=== PATIENT | female | born 1985 | race Hispanic/Latino ===

== ENCOUNTER → 2019-01-22 07:55 | Outpatient (CLI) | payer BC, SELFPAY ==
--- NOTE | 2019-01-22 07:59 | DI.US.S_ITS ---
PROCEDURE: US OB <= 14 WEEKS FETUS INDICATIONS: DATES OUTSIDE/PRIOR DATING DATA: Last menstrual period (LMP): 11/15/18. LMP-based estimated date of delivery (YANET): 08/22/19. First dating scan (date and location): 01/22/19, this study.. Estimated date of delivery (YANET) from first dating scan: 08/31/19, plus or -5 days. TECHNIQUE: Real-time scanning was performed of the fetus and maternal pelvic organs, with image documentation. Endovaginal scanning was also performed to better visualize the fetus and maternal ovaries. COMPARISON: None. FINDINGS: Embryo: 1.9 cm, crown-rump length. This correlates with a gestational age of 8 weeks 3 days, plus or -5 days. heart rate is detected, 168 beats per minute. Measurement variability in dating: +/- 4 weeks by LMP, +/- 7 days by mean sac diameter (use before 6 weeks gestation if crown-rump length not able to be measured), +/- 5 days by crown-rump length (up to 8 weeks 6 days gestation), +/- 7 days by crown-rump length (up to 13 weeks 6 days gestation). Maternal organs: Ovaries normal considering gestational status on the right, not seen on the left. Limited images through the kidneys demonstrate no hydronephrosis. IMPRESSION: Single living intrauterine gestation 8 weeks 3 days, delivery date projected to be centered on 08/31/19. Followup anatomic survey at approximately 21 weeks gestation is recommended. Dictated by: Vik Ceja M.D. on 01/22/2019 at 9:45 Approved by: Vik Ceja M.D. on 01/22/2019 at 9:48
== END ==
PROVIDERS: PCP Nurse Practitioner Family; Visit Provider Family Medicine
DX: Z34.81 Encounter for supervision of other normal pregnancy, first trimester (principal); Z3A.08 8 weeks gestation of pregnancy
CPT/HCPCS: 76801; 76817

== ENCOUNTER → 2019-01-29 12:54 | Outpatient (CLI) | payer BC, SELFPAY | PROVIDERS: PCP Nurse Practitioner Family; Visit Provider Family Medicine ==

== ENCOUNTER → 2019-02-03 12:16 | Outpatient (CLI) | payer BC, SELFPAY ==
[2019-02-03 13:54] LABS: Appearance Urine UA CLEAR; Bilirubin Urine UA NEGATIVE (NEGATIVE); Color Urine UA YELLOW; Glucose Urine UA NEGATIVE (Negative); Ketones Urine UA NEGATIVE (NEGATIVE); Leukocyte Esterase Urine UA NEGATIVE (NEGATIVE); Nitrite Urine UA NEGATIVE (Negative); Occult Blood Urine UA NEGATIVE (Negative); Protein Urine UA NEGATIVE (Negative); Specific Gravity Urine UA 1.025 (1.000-1.035); Urobilinogen Urine UA 0.2 E.U./dL (0.2); pH Urine UA 5.5 (4.5-8.0)
[2019-02-03 14:00] LABS: Add Manual Diff / Slide Review NO; Basophils Absolute Auto 0 /uL (0-100); Basophils Percent Auto 0.2 % (0-2); Eosinophils Absolute Auto 100 /uL (0-450); Eosinophils Percent Auto 0.8 % (2-4); Hematocrit 37.2 % (36-46); Hemoglobin 12.8 g/dL (12.0-16.0); Lymphocytes Absolute Auto 1500 /uL (1100-4500); Lymphocytes Percent Auto 20.3 % (25-40); Mean Corpuscular HGB Conc 34.3 % (30-36); Mean Corpuscular Volume 90.3 fL (80-100); Monocytes Absolute Auto 300 /uL (0-900); Monocytes Percent Auto 4.2 % (3-14); Neutrophils Absolute Auto 5500 /uL (1500-7000); Neutrophils Percent Auto 74.5 % (50-75); Platelet Count 137 X10^3/uL (150-400); Red Blood Cell Count 4.13 X10^6/uL (4.0-5.2); Red Cell Distribution Width 13.1 % (11.6-14.8); White Blood Cell Count 7.3 X10^3/uL (4.5-11.0)
[2019-02-03 15:16] LABS: Hepatitis B Surface Antigen NEGATIVE s/c (NEGATIVE); Rubella Antibody IgG 6.4 IU/mL (>15)
[2019-02-03 15:34] LABS: HIV 1 & 2 Ab/Ag 4th Gen Combo NEGATIVE (NEGATIVE); Hep C Virus Ab w/Reflex Quant NEGATIVE s/c (NEGATIVE)
[2019-02-07 14:56] LABS: RPR Screen Nonreactive (Nonreactive)
[2019-02-08 07:34] LABS: HSV 2 IGG AB < 0.90 index (< 0.90)
== END ==
PROVIDERS: Family Medicine; PCP Nurse Practitioner Family; Visit Provider Family Medicine
DX: Z34.91 Encounter for supervision of normal pregnancy, unspecified, first trimester (principal); Z3A.09 9 weeks gestation of pregnancy
CPT/HCPCS: 36415; 80055; 81003; 86695; 86696; 86787; 86803; 86850; 86900; 86901; 87086; 87389

== ENCOUNTER → 2019-04-13 14:03 | Outpatient (CLI) | payer BC, SELFPAY ==
--- NOTE | 2019-04-13 14:05 | DI.US.S_ITS ---
PROCEDURE: US OB >= 14 WEEKS FETUS INDICATIONS: anatomy screening OUTSIDE/PRIOR DATING DATA: Last menstrual period (LMP): 11/15/18. LMP-based estimated date of delivery (YANET): 08/22/19. First dating scan (date and location): 01/22/90. Estimated date of delivery (YANET) from first dating scan: 08/31/19. TECHNIQUE: Real-time scanning was performed of the fetus, with image documentation and biometric measurements. Endovaginal scanning: Not performed COMPARISON: [facility], OB <= 14 WEEKS FETUS, 01/22/2019, 8:24. FINDINGS: General: A single living intrauterine gestation is present. Presentation: Variable. Placenta: Placental position is anterior, without previa. Amniotic fluid index: 13.2 cm, normal range is 5-24 cm. largest pocket measures 3.7 cm heart rate: 139 beats per minute. Maternal cervical canal: 4.5 cm long. Normal lower limit is 2.5 cm. biometrics: Biparietal diameter: 4.6 cm, 19 weeks 5 days Head circumference: 17.3 cm, 19 weeks 6 days Abdominal circumference: 15.0 cm, 20 weeks 2 days Femur length: 3.2 cm, 19 weeks 6 days Estimated gestational age from initial scan: 20 weeks zero days Composite gestational age from present scan: 19 weeks 6 days Estimated weight and percentile: 329 g, 48th percentile Measurement variability for biometric dating: +/- 7 days from 14 weeks to 15 weeks 6 days gestation, +/- 10 days from 16 weeks to 21 weeks 6 days gestation, +/- 2 weeks from 22 weeks to 27 weeks 6 days gestation, +/- 3 weeks for 28 weeks gestation or later. weight reference: 4500 g or EFW >90/95% is considered macrosomia or large for gestational age. EFW <10% is small for gestational age. EFW 5% or less is considered intra-uterine growth restriction. Anatomic survey: Neuro: Ventricles are non-dilated at less than 10 mm. Cisterna magna is normal at 3-11 mm. Cerebellum is normal in size and morphology. Nuchal skin fold: Normal at less than 6 mm between 14-21 weeks gestational age. Face: Nose and lips, facial profile are normal. Spine: No evidence for spina bifida. Heart: 4-chambered heart is present, with normal ventricular outflow tracts. Diaphragm: Diaphragm is intact. Stomach: Left-sided stomach is present. Kidneys: No hydronephrosis. Normal is less than 5 mm in 2nd trimester, less than 7 mm in 3rd trimester. Cord: 3-vessel cord has orthotopic insertion. Bladder: Normal in size. Extremities: All 4 extremities identified. IMPRESSION: Single living intrauterine fetus in variable presentation demonstrating expected interval growth. Normal anatomic survey as above Dictated by: Phill Krause M.D. on 04/13/2019 at 17:40 Approved by: Phill Krause M.D. on 04/13/2019 at 17:43
== END ==
PROVIDERS: PCP Nurse Practitioner Family; Visit Provider Family Medicine
DX: Z36.89 Encounter for other specified antenatal screening (principal); Z3A.19 19 weeks gestation of pregnancy
CPT/HCPCS: 76811

== ENCOUNTER → 2019-05-26 10:33 | Outpatient (CLI) | payer BC, SELFPAY ==
[2019-05-26 12:25] LABS: Hematocrit 34.9 % (36-46); Hemoglobin 12.3 g/dL (12.0-16.0)
[2019-05-26 12:32] LABS: GTT (PREG) 1 Hour PP 50gm Dose 207 mg/dL (76-139)
== END ==
PROVIDERS: PCP Nurse Practitioner Family; Visit Provider Family Medicine
DX: Z34.90 Encounter for supervision of normal pregnancy, unspecified, unspecified trimester (principal); Z3A.26 26 weeks gestation of pregnancy
CPT/HCPCS: 36415; 82950; 85014; 85018

== ENCOUNTER → 2019-06-08 07:58 | Outpatient (CLI) | payer BC, SELFPAY ==
[2019-06-08 09:46] LABS: Glucose Fasting 67 mg/dL (70-100)
[2019-06-08 10:15] LABS: Glucose 1 Hour 131 mg/dL (70-170)
[2019-06-08 11:35] LABS: Glucose Tol Interpretation INTERPRETATION
[2019-06-08 11:56] LABS: Glucose 2 Hour 77 mg/dL (70-140)
[2019-06-08 12:32] LABS: Glucose 3 Hour 53 mg/dL (70-115)
== END ==
PROVIDERS: PCP Family Medicine; Visit Provider Family Medicine
DX: E74.39 Other disorders of intestinal carbohydrate absorption (principal)
CPT/HCPCS: 36415; 82951; 82952

== ENCOUNTER → 2019-08-03 15:06 | Outpatient (CLI) | payer BC, SELFPAY ==
[2019-08-04 13:29] LABS: Strep Grp B PCR NEG for Grp B Strep
== END ==
PROVIDERS: PCP Family Medicine; Visit Provider Family Medicine
DX: Z3A.36 36 weeks gestation of pregnancy (principal)
CPT/HCPCS: 87653

== ENCOUNTER 2019-08-21 10:41 | Outpatient (CLI) | payer BC, SELFPAY ==
--- NOTE | 2019-08-21 10:42 | DI.US.S_ITS ---
PROCEDURE: US OB LIMITED INDICATIONS: SMALL FOR DATES. CHECK GROWTH AND RAFAL OUTSIDE/PRIOR DATING DATA: Last menstrual period (LMP): 11/15/18. LMP-based estimated date of delivery (YANET): 08/22/19. First dating scan (date and location): 01/22/19. Estimated date of delivery (YANET) from first dating scan: 08/31/19. TECHNIQUE: Real-time scanning was performed of the fetus, with image documentation and biometric measurements. Endovaginal scanning: Not needed. COMPARISON: None. FINDINGS: General: A single living intrauterine gestation is present. Presentation: Vertex. Placenta: Placental position is anterior, without previa. Amniotic fluid index: 13.5 cm, normal range is 5-24 cm. heart rate: 135 beats per minute. Maternal cervical canal: Not clearly seen. biometrics: Biparietal diameter: 8.4 cm, 34 weeks 0 days Head circumference: 31.4 cm, 35 weeks 2 days Abdominal circumference: 32.0 cm, 35 weeks 6 days Femur length: 6.8 cm, 36 weeks 2 days Estimated gestational age from initial scan: 38 weeks 4 days Composite gestational age from present scan: 35 weeks 0 days Estimated weight and percentile: 2654 g, at the threshold of microsomia. Measurement variability for biometric dating: +/- 7 days from 14 weeks to 15 weeks 6 days gestation, +/- 10 days from 16 weeks to 21 weeks 6 days gestation, +/- 2 weeks from 22 weeks to 27 weeks 6 days gestation, +/- 3 weeks for 28 weeks gestation or later. weight reference: 4500 g or EFW >90/95% is considered macrosomia or large for gestational age. EFW <10% is small for gestational age. EFW 5% or less is considered intra-uterine growth restriction. Other: Not applicable. IMPRESSION: Fetus is small for accurate gestational age dating, at the lower 5th percentile for the current estimated weight. Symmetric growth reduction, normal amniotic fluid index, vertex presentation. Dictated by: Vik Ceja M.D. on 08/21/2019 at 11:51 Approved by: Vik Ceja M.D. on 08/21/2019 at 11:54
--- NOTE | 2019-08-21 14:27 | DI.US.S_ITS ---
PROCEDURE: US OB BIOPHYSICAL PROFILE INDICATIONS: BPP, BABY MEASURING AT 50% OUTSIDE/PRIOR DATING DATA: Last menstrual period (LMP): 11/15/18. LMP-based estimated date of delivery (YANET): 08/22/19. First dating scan (date and location): 01/22/19. Estimated date of delivery (YANET) from first dating scan: 08/31/19. TECHNIQUE: Real-time scanning was performed of the fetus for biophysical profile, with image documentation. Color and pulse Doppler interrogation was also performed of the umbilical artery near its insertion into the placenta. Endovaginal scanning: No anemia COMPARISON: None. FINDINGS: General: A single living intrauterine gestation is present. Presentation: Vertex Placenta: Placental position is anterior, without previa. Amniotic fluid index: 16.0 cm, normal range is 5-24 cm. heart rate: 126 beats per minute. Estimated gestational age from initial scan: 38 weeks 4 days. Biophysical profile: 6 of 8 possible points. Tone: 2 points. Movement: 2 points. Respiration: 0 points. Largest pocket of fluid: 2 points. IMPRESSION: Biophysical profile yields 6 at 8 possible points with no respiratory activity observed in the amniotic fluid. The amniotic fluid volume is normal, and the delivery date is projected to be centered on 08/31/19. Dictated by: Vik Ceja M.D. on 08/21/2019 at 16:37 Approved by: Vik Ceja M.D. on 08/21/2019 at 16:39
--- NOTE | 2019-08-21 17:27 | PM.OBTRLD ---
Visit Information Visit Information Date of evaluation: 08/21/19 Primary OB Provider: Katie Moraes Reason for Evaluation: Yes non-stress test non-stress test reason: other (SGA) Vital Signs Vital Signs: BP 108/70 P 90 PFSH Social History marital status: number of children: 0 household members: spouse lives independently: Yes occupational status: employed Smoking Status: Never smoker alcohol intake: never substance use type: does not use Evaluation Evaluation Baseline heart rate: 125 Variability: Moderate (11-25) monitor accelerations: Present monitor decelerations: Absent Uterine Contraction Intensity: Mild Category of Tracing: I Diagnosis, Plan/Disposition Final Diagnosis (1) Small for gestational age fetus: Current Visit: No Status: Acute (2) 38 weeks gestation of : Current Visit: No Status: Acute Plan/Disposition Plan: 33 year old at 38+4 weeks. She had an US today for growth due to measuring small for dates. EFW 5% with symmetric growth. BPP 8/10 today, off for respirations. NST reactive and RAFAL normal. Will have patient return on 08/23/19 for Cervidil followed by pitocin induction 08/24/19. OB Disposition: home
== END 2019-08-21 16:02 | disposition home or self-care (01) ==
LOC: US 10:42 → LABOR 14:43
PROVIDERS: PCP Family Medicine; Referring Provider Family Medicine; Visit Provider Family Medicine
DX: O36.5930 Maternal care for other known or suspected poor fetal growth, third trimester, not applicable or unspecified (principal); Z3A.35 35 weeks gestation of pregnancy
CPT/HCPCS: 59025; 76815; 76819; G0378

== ENCOUNTER 2019-08-23 20:38 | Inpatient (IN) | payer BC, SELFPAY ==
--- NOTE | 2019-08-23 21:56 | P.HPOB_ITS ---
OB HPI Date/Time Date of admission: 08/23/19 Date Patient Seen: 08/23/19 Time Patient Seen: 21:56 History of Present Condition Chief complaint: observation of labor : 1 Para: 0 Estimated Date of Delivery: 08/31/19 Estimated Gestational Age (weeks): 38w6d Narrative: Shira Barrientos is a 33 year old at 38 weeks and 6 days gestation here for induction due to suspected small for gestational age . She was m easuring less than dates so growth ultrasound was done earlier this week showing EFW at the fifth percentile. Growth restriction is symmetric and measures at 35 weeks rather 38 weeks. has otherwise been uncomplicated. She failed her 1 hour GTT but passed her 3 hour GTT easily. R emainder of the she watched her diet closely. She has a history of gastric sleeve surgery December 2017 with resultant 80 lb weight loss. 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 She has never had an outbreak herself. Indications Indication for induction OB: other (Suspected SGA) History of Present care: good care, initiated at week # (9), number of visits (12) and pounds weight gain (21) Dating criteria: based on 1st trimester US only Ultrasounds: normal mid trimester US and abnormal US findings (EFW 5th percentile at 38 weeks and 4 days otherwise normal anatomy) Obstetrical complications: none Medical complications: none Preadmission Labs Blood type: B (+) positive -: Antibody screen: negative, GBS status: negative, HBsAG: negative, HIV: ne gative, HSV 1: positive, HSV 2: negative and RPR/VDLR: negative -: Rubella: not immune and Varicella: immune HCT: 37.2 HCAB: negative Urine: Negative 1 hr GTT: 207 3 hr GTT: 1 hr (131), 2 hr (77) and 3 hr (53) Fasting blood glucose: 67 Evaluation Evaluation Baseline heart rate: 120 Variability: Moderate (11-25) monitor accelerations: Present monitor decelerations: Absent Category of Tracing: I PFSH Medical History Infertility (Resolved) PCOS (polycystic ovarian syndrome) (Resolved) Surgical History S/P appendectomy (Resolved) S/P bariatric surgery (Resolved) Family History Father Diabetes mellitus Social History marital status: number of children: 0 household members: spouse lives independently: Yes occupational status: employed Smoking Status: Never smoker alcohol intake: never substance use type: does not use Meds Home Medications and Allergies Home Medications Medication Instructions Recorded Confirmed Type prenat.vits,esequiel,mkk-kozs-rwoog 1 tab PO DAILY 01/22/19 08/10/19 History silver sulfadiazine 1 % topical 1 applictn TOP DAILY #20 gram 01/29/19 08/10/19 Rx cream acyclovir 400 mg tablet 400 mg PO TID #90 tab 08/10/19 08/10/19 Rx Allergies Allergy/AdvReac Type Severity Reaction Status Date / Time No Known Drug Allergies Allergy Verified 08/10/19 15:12 Review of Systems Constitutional Constitutional: Denies fatigue and Denies fever(s) Cardiovascular Cardiovascular: Denies leg swelling and Denies shortness of breath Respiratory Respiratory: Denies cough and Denies dyspnea Gastrointestinal Gastrointestinal: Denies abdominal pain and Denies change in bowel habits Genitourinary Genitourinary: Denies vaginal discharge, Denies vaginal odor and Denies pelvic pain Endocrine Endocrine: Denies fatigue Exam Vital Signs (past 8 hours): T 36.4 BP 104/68 HR 61 Const General: healthy appearing and comfortable HENMT Head: normal to inspection Ears: hearing grossly normal bilaterally Nose: external nose normal Face and sinus: normal facial exam Mouth: oral mucosae normal Eyes General: appearance normal, both eyes and all related structures Neck Neck: normal visual inspection Resp Effort & Inspection: normal respiratory effort Auscultation: clear to auscultation bilaterally Cardio Rate: regular rate Rhythm: regular rhythm Heart Sounds: no murmurs GI Other: Gravid Estimated Weight (lbs): 6 Back/Spine/Pelvis Back: normal to inspection Skin General: no rashes or lesions noted Extrem General: normal to inspection and no pedal edema Objective Labs Result Diagrams: 08/23/19 23:15 Assessment and Plan Assessment and Plan Assessment and Plan narrative: 33 year old at 38+6 weeks gestation here for induction due to SGA. EFW at the 5th% by US at 38+4 weeks. Plan - Cervical ripening followed by pitocin - GBS negative
[2019-08-24] MEDS: DINOPROSTONE VAG (CERVIDIL) 10 MG VAG
[2019-08-24 00:12] VITALS: BP 94/63
[2019-08-24 00:33] LABS: Add Manual Diff / Slide Review NO; Basophils Absolute Auto 0 /uL (0-100); Basophils Percent Auto 0.2 % (0-2); Eosinophils Absolute Auto 100 /uL (0-450); Eosinophils Percent Auto 1.6 % (2-4); Hemoglobin 11.5 g/dL (12.0-16.0); Lymphocytes Absolute Auto 1700 /uL (1100-4500); Lymphocytes Percent Auto 30.4 % (25-40); Mean Corpuscular HGB Conc 34.8 % (30-36); Monocytes Absolute Auto 300 /uL (0-900); Monocytes Percent Auto 5.8 % (3-14); Neutrophils Absolute Auto 3400 /uL (1500-7000); Red Blood Cell Count 3.71 X10^6/uL (4.0-5.2); Red Cell Distribution Width 12.9 % (11.6-14.8); White Blood Cell Count 5.5 X10^3/uL (4.5-11.0)
[2019-08-24 00:36] LABS: Platelet Count 92 X10^3/uL (150-400)
[2019-08-24] MEDS: LACTATED RINGERS 1,000 ML 100 ML IV ×3 (07:48→21:08)
--- NOTE | 2019-08-24 08:22 | PM.OBPNLAB ---
Date/Time Date Patient Seen: 08/24/19 Time Patient Seen: 07:45 Pain Control Pain control: tolerating well (Feeling crampy) Pelvic Exam Dilation (cm): 1 Effacement (%): 60 station: -1 Contractions Contraction frequency (min): 4 Contraction pattern: Regular Contraction intensity: Mild Status status: Category l Heart Rate Baseline: 125 Monitor Accelerations: Present Monitor Decelerations: Absent Monitor Variability: Moderate Assessment and Plan Comments: Remove Cervidil at 10 AM and start pitocin.
[2019-08-24] MEDS: OXYTOCIN PREMIX 30 UNIT/500 ML PLAST..BAG IV (10:29)
--- NOTE | 2019-08-24 12:48 | PM.OBPNLAB ---
Date/Time Date Patient Seen: 08/24/19 Time Patient Seen: 12:10 Pain Control Pain control: tolerating well Pelvic Exam Dilation (cm): 3 Effacement (%): 75 station: -1 Contractions Pitocin rate (mU/min): 6 Contraction pattern: Regular Contraction intensity: Mild Status status: Category l Heart Rate Baseline: 130 Monitor Accelerations: Present Monitor Decelerations: Absent Monitor Variability: Moderate Assessment and Plan Assessment: induction ongoing Plan: continuous present management
--- NOTE | 2019-08-24 22:39 | P.PCNOB_ITS ---
Labor & Delivery Delivery date: 08/24/19 Cervical ripening method: per Cervidil protocol Induction method: per pitocin protocol Delivery augmentation: rupture of membranes Delivery monitor: external FHT Route of delivery: L&D Laceration Description: Vaginal - 2nd Degree Delivery repair: vicryl Estimated blood loss (mL): 400 Anesthesia type: Epidural Narrative: STAGE I: Labor Patient received Cervidil overnight followed by Pitocin per protocol. Active labor began at 12:05 p.m.. Patient received an epidural. Artificial rupture of membranes at 3:54 p.m. with clear fluid. She was complete at 9:33 p.m.. heart tones were category 1 throughout stage I. STAGE II: Delivery Spontaneous vaginal delivery occurred at 10:11 p.m.. Infant was vertex and OMERO. was immediately placed on mother's abdomen and vigorous at delivery. Cord was clamped and cut after 1 minutes delay. Apgars were 9 and 9. STAGE III: Placenta/Cord Placenta delivered at 10:16 p.m. after active management and appeared intact with a three-vessel cord. Pitocin bolus given after delivery of placenta. A short second-degree vaginal laceration was repaired in the usual fashion with 3- 0 Vicryl. Hemostasis assured. Fundus firm below umbilicus. EBL: 400 mL. Needle and sponge counts were correct. The vagina was inspected and no items were left in situ. Patient was doing well with Alicia, her and at bedside. Baby 1: gender: Female Presentation: vertex Placenta delivery description: Spontaneous cord vessel description: 3 Vessels score (1 min): 9 score (5 min): 9
--- NOTE | 2019-08-25 11:15 | P.PNOB_ITS ---
Subjective - OB Subjective Patient comments: no complaints, tolerating diet and flatus present [place] baby status: doing well feeding status: exclusively breast feeding Date Patient Seen: 08/25/19 Time Patient Seen: 10:15 Interval history: Patient denies complaints this morning and is doing quite well. has breast-fed several times since delivery. Bleeding is similar to a menstrual cycle and decreasing. Pain is well controlled without any medication. She is ambulating and voiding without difficulty. She was lightheaded after delivery with some lower than normal blood pressures however symptoms resolved this morning. Exam Vital Signs (past 8 hours): Temperature 36.8? blood pressure 89/50 heart rate 76 Narrative Exam Narrative: General: Awake and alert, no acute distress. HEENT: NCAT, EOMI, moist oral mucosa CV: Regular rate and rhythm, no murmurs, rubs or gallops Lungs: CTAB, no wheezes, rales, or rhonchi Abdomen: Soft, nontender; bowel tones active; uterus firm 1 cm below umbilicus Extremities: Warm, no edema, 2+ pedal pulses bilaterally Objective Labs Result Diagrams: 08/23/19 23:15 Assessment & Plan Assessment and Plan (1) 39 weeks gestation of : Status: Acute Current Visit: Yes (2) Spontaneous vaginal delivery: Status: Acute Current Visit: Yes Plan day: 1 plan OB: routine care Comments: Doing well without complaints. She had mild thrombocytopenia on admission without associated hypertension that would raise concern for preeclampsia. No issues with excessive bleeding . Will repeat a level today. Anticipate discharge home tomorrow. Time Spent With Patient Time: Total time spent is greater than 50% in coordination of care (as documented) at patient's floor/unit and/or counseling patient: Time with patient: less than 15 minutes
[2019-08-25 14:37] LABS: Add Manual Diff / Slide Review NO; Basophils Absolute Auto 0 /uL (0-100); Basophils Percent Auto 0.2 % (0-2); Eosinophils Absolute Auto 100 /uL (0-450); Eosinophils Percent Auto 0.8 % (2-4); Hematocrit 32.9 % (36-46); Hemoglobin 11.8 g/dL (12.0-16.0); Lymphocytes Absolute Auto 1400 /uL (1100-4500); Lymphocytes Percent Auto 14.1 % (25-40); Mean Corpuscular HGB Conc 35.8 % (30-36); Mean Corpuscular Hemoglobin 31.9 PG (26-34); Mean Corpuscular Volume 89.3 fL (80-100); Monocytes Absolute Auto 400 /uL (0-900); Monocytes Percent Auto 3.7 % (3-14); Neutrophils Absolute Auto 8200 /uL (1500-7000); Neutrophils Percent Auto 81.2 % (50-75); Platelet Count 103 X10^3/uL (150-400); Red Blood Cell Count 3.68 X10^6/uL (4.0-5.2); Red Cell Distribution Width 13.3 % (11.6-14.8); White Blood Cell Count 10.1 X10^3/uL (4.5-11.0)
--- NOTE | 2019-08-26 08:40 | P.PNOB_ITS ---
Subjective - OB Subjective Patient comments: no complaints and pain well controlled [place] baby status: doing well [place] feeding status: exclusively breast feeding Narrative: This patient is a 33-year-old para 1 day 2 after an u ncomplicated vaginal delivery. Patient was induced for suspected IUGR, baby doing well, weighed over 6 lb. Patient reports feeling well, ambulating, tolerating p.o., voiding, mild lochia, no other complaints. Date Patient Seen: 08/26/19 Time Patient Seen: 08:40 Exam Vital Signs (past 8 hours): 100/56, heart rate 66 Narrative Exam Narrative: On room, patient tearful, reports ?happy tears, I'm overjoyed.? Denies symptoms of depression or baby blues. Const General: cooperative, healthy appearing and comfortable Resp Effort & Inspection: normal respiratory effort Auscultation: clear to auscultation bilaterally Cardio Rate: regular rate Rhythm: regular rhythm GI Palpation: soft and No tender Other: Fundus firm, well below U External Female Exam: external appearance normal and exteral laceration (Sutures intact, no signs or symptoms of infection.) Skin General: no rashes or lesions noted Objective Labs Result Diagrams: 08/25/19 14:20 Labs: Laboratory Results - last 24 hr 08/25/19 14:20 WBC 10.1 D RBC 3.68 L Hgb 11.8 L Hct 32.9 L MCV 89.3 MCH 31.9 MCHC 35.8 RDW 13.3 Plt Count 103 L Neut % (Auto) 81.2 H Lymph % (Auto) 14.1 L Esmeralda % (Auto) 3.7 Eos % (Auto) 0.8 L Baso % (Auto) 0.2 Neut # (Auto) 8200 H Lymph # (Auto) 1400 Esmeralda # (Auto) 400 Eos # (Auto) 100 Baso # (Auto) 0 Assessment & Plan Assessment and Plan (1) 39 weeks gestation of : Status: Acute Current Visit: Yes (2) Spontaneous vaginal delivery: Status: Acute Current Visit: Yes Plan day: 2 plan OB: discharge home Comments: This patient is doing well, meeting goals appropriately in stable for discharge home. precautions and anticipatory guidance were discussed, all questions were answered and patient and spouse vocalized understanding. Time Spent With Patient Time: Total time spent is greater than 50% in coordination of care (as documented) at patient's floor/unit and/or counseling patient: Time with patient: 25 - 35 minutes
--- NOTE | 2019-08-26 08:42 | PM.OBDS.1 ---
Discharge Providers Provider Date of admission: 08/23/19 20:38 Discharge Date: 08/26/19 Primary care physician: Katie Moraes DO Consults: 08/25/19 22:55 Consult to Telecommunications Clerk Routine Comment: Discharge provider: Michela Hamm MD Summary Hospital Course Date Patient Seen: 08/26/19 Time Patient Seen: 08:43 Procedures: Spontaneous vaginal delivery Hospital Course: This patient is a 33-year-old now para 1 presented for induction of labor for suspected IUGR. Patient underwent uncomplicated induction of labor and vaginal delivery, with no intrapartum or immediate complications. Recovery was uneventful, and patient was discharged on day 2. Peripartum Data Infant Delivery Method: Natural Vaginal Laceration description: Perineal - 2nd Degree complications: none 1: Gender: Female Disposition of : home Discharge Diagnosis (1) 39 weeks gestation of : Status: Acute (2) Spontaneous vaginal delivery: Status: Acute Status at Discharge Cognitive/behavioral status at discharge: oriented Functional status at discharge: independent ambulation Overall status at discharge: patient is progressing back to baseline Time Spent with Patient Time attestation: Total time spent providing and/or coordinating discharge services: Time spent: Less than 30 minutes Objective Labs Result Diagrams: 08/25/19 14:20 Labs: Laboratory Results - last 24 hr 08/25/19 14:20 WBC 10.1 D RBC 3.68 L Hgb 11.8 L Hct 32.9 L MCV 89.3 MCH 31.9 MCHC 35.8 RDW 13.3 Plt Count 103 L Neut % (Auto) 81.2 H Lymph % (Auto) 14.1 L Stokes % (Auto) 3.7 Eos % (Auto) 0.8 L Baso % (Auto) 0.2 Neut # (Auto) 8200 H Lymph # (Auto) 1400 Stokes # (Auto) 400 Eos # (Auto) 100 Baso # (Auto) 0 Exam Vital Signs (past 8 hours): CC day of discharge progress note Discharge Plan Discharge Plan Patient Disposition: Home Discharge orders & Medications Prescriptions: Continued acyclovir 400 mg tablet 400 mg PO TID Qty: 90 RF: 0 prenat.vits,esequiel,por-ixin-tntka tablet 1 tab PO DAILY RF: 0 Discontinued silver sulfadiazine 1 % cream 1 applictn TOP DAILY Qty: 20 RF: 0 Follow up/Referrals: Katie Moraes DO [Primary Care Provider] - 6 Weeks Diet/Activity/Treatments Diet: Regular Activity: Nothing in the vagina for 6 weeks. Avoid heavy lifting for 6 weeks. If you have increasing bleeding, fevers, chills, nausea, headaches that do not go away, worsening depression symptoms, or any other concerns, call or come to the emergency room. Skin/Wound/Dressing Care Report to your healthcare provider any signs of infection, such as:: chills, fever, night sweats, increased pain, unusual drainage and unusual redness Visit Report/Discharge Packet Instructions: DI for Labor and Delivery, Vaginal Discharge Data Primary Care Provider: Katie Moraes
[2019-08-26 10:29] VITALS: BP 109/77; PULSE 71; RESP 16; TEMP 36.7
== END 2019-08-26 14:03 | disposition home or self-care (01) | DRG 806 ==
PROVIDERS: Admitting Provider Family Medicine; PCP Family Medicine; Referring Provider Family Medicine; Visit Provider Family Medicine
DX: O36.5930 Maternal care for other known or suspected poor fetal growth, third trimester, not applicable or unspecified (principal); O71.4 Obstetric high vaginal laceration alone; Z37.0 Single live birth; O99.12 Other diseases of the blood and blood-forming organs and certain disorders involving the immune mechanism complicating childbirth; Z3A.38 38 weeks gestation of pregnancy; D69.6 Thrombocytopenia, unspecified
CPT/HCPCS: 01967; 36415; 59050; 59400; 85025; 86850; 86900; 86901; G0379; J2590

== ENCOUNTER → 2020-08-02 09:23 | Outpatient (CLI) | payer BC, SELFPAY ==
[2020-08-02 11:08] LABS: HCG Quantitative /Beta subunit 140190 mIU/mL
== END ==
PROVIDERS: PCP Family Medicine; Referring Provider Family Medicine; Visit Provider Family Medicine
DX: Z34.81 Encounter for supervision of other normal pregnancy, first trimester (principal)
CPT/HCPCS: 36415; 84702

== ENCOUNTER → 2020-08-04 09:02 | Outpatient (CLI) | payer BC, OTHER, SELFPAY ==
[2020-08-04 10:45] LABS: HCG Quantitative /Beta subunit 146210 mIU/mL
== END ==
PROVIDERS: PCP Family Medicine; Referring Provider Family Medicine; Visit Provider Family Medicine
DX: Z34.81 Encounter for supervision of other normal pregnancy, first trimester (principal)
CPT/HCPCS: 36415; 84702

== ENCOUNTER → 2020-08-07 07:50 | Outpatient (CLI) | payer BC, OTHER, SELFPAY ==
--- NOTE | 2020-08-07 07:51 | DI.US.S_ITS ---
PROCEDURE: US OB <= 14 WEEKS FETUS INDICATIONS: DATING AND VIABILITY OUTSIDE/PRIOR DATING DATA: Last menstrual period (LMP): Unknown. LMP-based estimated date of delivery (YANET): Unknown. First dating scan (date and location): 08/07/2020. Estimated date of delivery (YANET) from first dating scan: 03/13/2021. TECHNIQUE: Real-time scanning was performed of the fetus and maternal pelvic organs, with image documentation. COMPARISON: None. FINDINGS: Embryo: Living intrauterine gestation. [place] lump length measuring 2.2 cm, 8 weeks 6 days gestational age. heart rate 178 BPM. A yolk sac is seen. No perigestational hemorrhage. Measurement variability in dating: +/- 4 weeks by LMP, +/- 7 days by mean sac diameter (use before 6 weeks gestation if crown-rump length not able to be measured), +/- 5 days by crown-rump length (up to 8 weeks 6 days gestation), +/- 7 days by crown-rump length (up to 13 weeks 6 days gestation). Maternal organs: Right corpus luteum suspected measuring 1.8 cm. The left ovary is not well seen. IMPRESSION: 1. Kay living intrauterine at 8 weeks 6 days based on today's crown rump length. 2. No perigestational hemorrhage. Dictated by: Declan Massey M.D. on 08/07/2020 at 9:27 Approved by: Declan Massey M.D. on 08/07/2020 at 9:30
== END ==
PROVIDERS: Referring Provider Family Medicine; Visit Provider Family Medicine
DX: Z34.81 Encounter for supervision of other normal pregnancy, first trimester (principal); Z3A.08 8 weeks gestation of pregnancy
CPT/HCPCS: 76801; 76817

== ENCOUNTER → 2020-08-16 11:40 | Outpatient (CLI) | payer BC, OTHER, MEDICAID, SELFPAY ==
[2020-08-16 12:36] LABS: Add Manual Diff / Slide Review NO; Appearance Urine UA CLEAR; Basophils Absolute Auto 0 /uL (0-100); Basophils Percent Auto 0.4 % (0-2); Bilirubin Urine UA NEGATIVE (NEGATIVE); Color Urine UA YELLOW; Eosinophils Absolute Auto 0 /uL (0-450); Eosinophils Percent Auto 0.8 % (2-4); Glucose Urine UA NEGATIVE (Negative); Hematocrit 40.3 % (36-46); Hemoglobin 13.6 g/dL (12.0-16.0); Ketones Urine UA NEGATIVE (NEGATIVE); Leukocyte Esterase Urine UA NEGATIVE (NEGATIVE); Lymphocytes Absolute Auto 1200 /uL (1100-4500); Lymphocytes Percent Auto 18.9 % (25-40); Mean Corpuscular HGB Conc 33.8 % (30-36); Mean Corpuscular Volume 88.7 fL (80-100); Monocytes Absolute Auto 400 /uL (0-900); Monocytes Percent Auto 5.9 % (3-14); Neutrophils Absolute Auto 4700 /uL (1500-7000); Nitrite Urine UA NEGATIVE (Negative); Occult Blood Urine UA NEGATIVE (Negative); Platelet Count 137 X10^3/uL (150-400); Protein Urine UA NEGATIVE (Negative); Red Blood Cell Count 4.54 X10^6/uL (4.0-5.2); Red Cell Distribution Width 13.7 % (11.6-14.8); Urobilinogen Urine UA 0.2 E.U./dL (0.2); White Blood Cell Count 6.4 X10^3/uL (4.5-11.0)
[2020-08-18 14:43] LABS: Varicella IgG Antibody 1773 index (Immune >165)
[2020-08-18 16:11] LABS: HIV 1 & 2 Ab/Ag 4th Gen Combo NEGATIVE (NEGATIVE); Hep C Virus Ab w/Reflex Quant NEGATIVE s/c (NEGATIVE); Hepatitis B Surface Antigen NEGATIVE s/c (NEGATIVE); Rubella Antibody IgG 5.2 IU/mL (>15)
[2020-08-19 08:13] LABS: RPR Screen Non Reactive (Non Reactive)
== END ==
PROVIDERS: Referring Provider Family Medicine; Visit Provider Family Medicine
DX: Z34.81 Encounter for supervision of other normal pregnancy, first trimester (principal)
CPT/HCPCS: 36415; 80055; 81003; 86787; 86803; 86850; 86900; 86901; 87086; 87389

== ENCOUNTER → 2020-08-28 10:44 | Outpatient (CLI) | payer BC, OTHER, MEDICAID, SELFPAY ==
[2020-08-28 11:17] LABS: Hemoglobin A1C% w Est Avg Glu 4.9 % (4.0-6.0)
[2020-08-30 04:11] LABS: Chlamydia trachomatis NAA Negative (Negative); Neisseria gonorrhoeae NAA Negative (Negative)
== END ==
PROVIDERS: PCP Family Medicine; Referring Provider Family Medicine; Visit Provider Family Medicine
DX: R73.9 Hyperglycemia, unspecified (principal)
CPT/HCPCS: 36415; 83036; 87491; 87591

== ENCOUNTER → 2020-10-22 14:11 | Outpatient (CLI) | payer BC, OTHER, MEDICAID, SELFPAY ==
--- NOTE | 2020-10-22 14:12 | DI.US.S_ITS ---
PROCEDURE: US OB >= 14 WEEKS FETUS INDICATIONS: anatomy screening OUTSIDE/PRIOR DATING DATA: Last menstrual period (LMP): Not available. LMP-based estimated date of delivery (YANET): Not available . First dating scan (date and location): 08/07/20 . Estimated date of delivery (YANET) from first dating scan: 03/13/21 . TECHNIQUE: Real-time scanning was performed of the fetus, with image documentation and biometric measurements. Endovaginal scanning: Not necessary COMPARISON: [facility], OB >= 14 WEEKS FETUS, 04/13/2019, 14:44. FINDINGS: General: A single living intrauterine gestation is present. Presentation: Vertex. Placenta: Placental position is anterior , without previa. Amniotic fluid index: 15.0cm, normal range is 5-24 cm. heart rate: 131 beats per minute. Maternal cervical canal: 5.2 cm long. Normal lower limit is 2.5 cm. biometrics: Biparietal diameter: 4.3 cm, 19 weeks 1 day Head circumference: 16.7 cm, 19 weeks 2 days Abdominal circumference: 14.0 cm, 19 weeks 2 days Femur length: 3.0 cm, 19 weeks 1 day Estimated gestational age from initial scan: 19 weeks 5 days Composite gestational age from present scan: 19 weeks 2 days Estimated weight and percentile: 282 g, 20 second percentile Measurement variability for biometric dating: +/- 7 days from 14 weeks to 15 weeks 6 days gestation, +/- 10 days from 16 weeks to 21 weeks 6 days gestation, +/- 2 weeks from 22 weeks to 27 weeks 6 days gestation, +/- 3 weeks for 28 weeks gestation or later. weight reference: 4500 g or EFW >90/95% is considered macrosomia or large for gestational age. EFW <10% is small for gestational age. EFW 5% or less is considered intra-uterine growth restriction. Anatomic survey: Neuro: Ventricles are non-dilated at less than 10 mm. Cisterna magna is normal at 3-11 mm. Cerebellum is normal in size and morphology. Nuchal skin fold: Normal at less than 6 mm between 14-21 weeks gestational age. Face: Nose and lips, facial profile are poorly seen. Spine: No evidence for spina bifida. Heart: 4-chambered heart is poorly seen, with poorly seen ventricular outflow tracts. Diaphragm: Diaphragm is intact. Stomach: Left-sided stomach is present. Kidneys: No hydronephrosis. Normal is less than 5 mm in 2nd trimester, less than 7 mm in 3rd trimester. Cord: 3-vessel cord has orthotopic insertion. Bladder: Normal in size. Extremities: All 4 extremities identified. IMPRESSION: Appropriate interval growth, no anomaly seen however the facial area, four-chamber view of heart and cardiac outflow tracts were not well seen due to positioning. Follow-up in approximately 10 days is recommended to attempt completion of the anatomic survey. Dictated by: Vik Ceja M.D. on 10/22/2020 at 16:04 Approved by: Vik Ceja M.D. on 10/22/2020 at 16:06
== END ==
PROVIDERS: PCP Family Medicine; Referring Provider Family Medicine; Visit Provider Family Medicine
DX: Z36.89 Encounter for other specified antenatal screening (principal); Z3A.19 19 weeks gestation of pregnancy
CPT/HCPCS: 76811

== ENCOUNTER → 2020-11-03 08:04 | Outpatient (CLI) | payer BC, OTHER, MEDICAID, SELFPAY ==
--- NOTE | 2020-11-03 08:05 | DI.US.S_ITS ---
PROCEDURE: US OB FOLLOW UP INDICATIONS: FOLLOW UP HEART AND FACE OUTSIDE/PRIOR DATING DATA: Last menstrual period (LMP): Unknown LMP-based estimated date of delivery (YANET): Unknown . First dating scan (date and location): 08/07/20 . Estimated date of delivery (YANET) from first dating scan: 03/13/21 . TECHNIQUE: Real-time scanning was performed of the fetus, with image documentation. Endovaginal scanning: Not performed COMPARISON: [facility], OB >= 14 WEEKS FETUS, 10/22/2020, 13:25. [facility], OB <= 14 WEEKS FETUS, 08/07/2020, 8:04. FINDINGS: A single living intrauterine gestation is present. Presentation: Vertex. Placenta: Placental position is anterior/fundal , without previa. Amniotic fluid index: 16.5 cm, normal range is 5-24 cm. heart rate: 150 beats per minute. Maternal cervical canal: 4.9 cm long. Normal lower limit is 2.5 cm. Estimated gestational age from initial scan: 21 weeks 3 days Normal appearance of the facial profile, orbits, nose lips and face. There is normal appearance of the ventricular outflow tracts and four-chamber heart. This completes the anatomic survey . IMPRESSION: Single living intrauterine fetus in vertex presentation. Normal follow-up anatomic survey as above. Dictated by: Phill Krause M.D. on 11/03/2020 at 12:59 Approved by: Phill Krause M.D. on 11/03/2020 at 13:03
== END ==
PROVIDERS: PCP Family Medicine; Referring Provider Family Medicine; Visit Provider Family Medicine
DX: Z36.2 Encounter for other antenatal screening follow-up (principal); Z3A.21 21 weeks gestation of pregnancy
CPT/HCPCS: 76816

== ENCOUNTER → 2021-01-12 08:24 | Outpatient (CLI) | payer BC, OTHER, MEDICAID, SELFPAY ==
[2021-01-12 11:51] LABS: Hematocrit 36.2 % (36-46); Hemoglobin 12.1 g/dL (12.0-16.0)
[2021-01-12 12:28] LABS: GTT (PREG) 1 Hour PP 50gm Dose 141 mg/dL (76-139)
== END ==
PROVIDERS: PCP Family Medicine; Referring Provider Family Medicine; Visit Provider Family Medicine
DX: Z34.92 Encounter for supervision of normal pregnancy, unspecified, second trimester (principal); Z3A.26 26 weeks gestation of pregnancy
CPT/HCPCS: 36415; 82950; 85014; 85018

== ENCOUNTER → 2021-01-27 08:01 | Outpatient (CLI) | payer BC, OTHER, MEDICAID, SELFPAY ==
[2021-01-27 09:38] LABS: Glucose Fasting Gestational 65 mg/dL (76-95)
[2021-01-27 10:18] LABS: Glucose 1 Hour Gest 181 mg/dL (76-180)
[2021-01-27 11:13] LABS: Glucose 2 Hour Gest 95 mg/dL (76-155)
[2021-01-27 11:26] LABS: Glucose Tol Interp,Gestational INTERPRETATION
[2021-01-27 12:23] LABS: Glucose 3 Hour Gest 56 mg/dL (76-140)
== END ==
PROVIDERS: PCP Family Medicine; Referring Provider Family Medicine; Visit Provider Family Medicine
DX: R73.09 Other abnormal glucose (principal)
CPT/HCPCS: 36415; 82951; 82952

== ENCOUNTER → 2021-02-16 12:10 | Outpatient (CLI) | payer BC, OTHER, MEDICAID, SELFPAY ==
[2021-02-17 11:11] LABS: Strep Grp B PCR NEG for Grp B Strep
== END ==
PROVIDERS: PCP Family Medicine; Visit Provider Family Medicine
DX: Z34.90 Encounter for supervision of normal pregnancy, unspecified, unspecified trimester (principal); Z3A.36 36 weeks gestation of pregnancy
CPT/HCPCS: 87653

== ENCOUNTER 2021-03-05 19:07 | Inpatient (IN) | payer BC, OTHER, MEDICAID, SELFPAY ==
[2021-03-05 20:10] VITALS: BP 109/71
[2021-03-05] MEDS: DINOPROSTONE VAG (CERVIDIL) 10 MG VAG (21:20)
[2021-03-05 21:21] LABS: Add Manual Diff / Slide Review NO; Basophils Absolute Auto 0 /uL (0-100); Eosinophils Absolute Auto 100 /uL (0-450); Eosinophils Percent Auto 0.9 % (2-4); Hematocrit 34.8 % (36-46); Hemoglobin 11.7 g/dL (12.0-16.0); Lymphocytes Absolute Auto 1300 /uL (1100-4500); Lymphocytes Percent Auto 20.5 % (25-40); Mean Corpuscular HGB Conc 33.6 % (30-36); Mean Corpuscular Hemoglobin 29.2 PG (26-34); Monocytes Absolute Auto 400 /uL (0-900); Monocytes Percent Auto 5.9 % (3-14); Neutrophils Absolute Auto 4700 /uL (1500-7000); Neutrophils Percent Auto 72.7 % (50-75); Platelet Count 90 X10^3/uL (150-400); Red Blood Cell Count 4.01 X10^6/uL (4.0-5.2); Red Cell Distribution Width 13.6 % (11.6-14.8); White Blood Cell Count 6.5 X10^3/uL (4.5-11.0)
[2021-03-05 22:50] LABS: COVID19 - ADMIT (NP swab/PCR) Negative (Negative)
--- NOTE | 2021-03-06 08:04 | P.HPOB_ITS ---
OB HPI Date/Time Date of admission: 03/05/21 Date Patient Seen: 03/06/21 Time Patient Seen: 07:45 History of Present Condition Chief complaint: observation of labor : 2 Para: 1 Estimated Date of Delivery: 03/13/21 Estimated Gestational Age (weeks): 39 Narrative: Shira Barrientos is a 35 year old at 39 weeks gestation here for induction for AMA. has been uncomplicated with good care. She has been taking prophylactic Valtrex due to a h/o genital herpes in her though she has never had an outbreak herself. Indications Indication for induction OB: other (AMA) History of Present care: good care, initiated at week # (11), number of visits (9) and pounds weight gain (36) Dating criteria: based on 1st trimester US only Ultrasounds: normal mid trimester US Obstetrical complications: none Medical complications: none Preadmission Labs Blood type: B (+) positive -: Antibody screen: negative, GBS status: negative, HBsAG: negative, HIV: negative and RPR/VDLR: negative -: Rubella: not immune and Varicella: immune HCT: 348 HCAB: negative Urine: Negative 1 hr GTT: 141 3 hr GTT: 1 hr (181), 2 hr (95) and 3 hr (56) Fasting blood glucose: 65 Prior (ies) History: 08/24/19 39 wks, 12 hr labor, 6 lb 6.9 oz female, epidural, IH Aleisha, breast fed 1 yr+, [place] Evaluation Evaluation Baseline heart rate: 135 Variability: Moderate (11-25) monitor accelerations: Present Monitor Decelerations: Absent Contraction Frequency (minutes): 4 Category of Tracing: Reactive Status: Category l Cervical dilation (cm): 3 Cervical effacement (%): 75 station: -2 [facility] Medical History Abnormal Pap smear of cervix (~2010) AMA (advanced maternal age) multigravida 35+ Fatty liver (~2013) History of prediabetes (~2016) Infertility PCOS (polycystic ovarian syndrome) (spontaneous vaginal delivery) (~08/24/19) Surgical History S/P appendectomy (~2012) S/P bariatric surgery (~12/2017) [place] teeth extracted Family History Father Diabetes mellitus Hypertension Mother Hyperlipidemia Cancer Grandmother No problems noted. Grandfather No problems noted. Grandmother CVA (cerebral vascular accident) Grandfather No problems noted. 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) current occupational exposures/hazards: Yes jessica/mosque: Jew special jessica needs: No Smoking Status: Never smoker second hand exposure: No alcohol intake: former (pre- : rare) substance use type: does not use Meds Home Medications and Allergies Home Medications Medication Instructions Recorded Confirmed Type prenat.vits,esequiel,pcj-tutv-yshzw 1 tab PO DAILY 01/22/19 03/05/21 History blood sugar diagnostic (Blood #100 ea 01/13/21 03/05/21 Rx Glucose Test) blood-glucose meter #1 ea 01/13/21 03/05/21 Rx lancets #100 ea 01/13/21 03/05/21 Rx acyclovir 400 mg tablet 400 mg PO TID #90 tab 02/02/21 03/05/21 Rx Allergies Allergy/AdvReac Type Severity Reaction Status Date / Time No Known Drug Allergies Allergy Verified 08/28/20 10:11 Review of Systems Review of Systems ROS: Yes All systems reviewed with the patient and are negative except as otherwise documented Exam Vital Signs (past 8 hours): T 37.1 BP 110/66 P 69 Const General: healthy appearing and comfortable HENMT Head: normal to inspection Ears: hearing grossly normal bilaterally Nose: external nose normal Face and sinus: normal facial exam Mouth: oral mucosae normal Eyes General: appearance normal, both eyes and all related structures Neck Neck: normal visual inspection Resp Effort & Inspection: normal respiratory effort Auscultation: clear to auscultation bilaterally Cardio Rate: regular rate Rhythm: regular rhythm Heart Sounds: no murmurs GI Other: Gravid External Female Exam: normal external appearance Manual OB Exam: dilated 3, effaced 75% and station -2 Presentation: vertex Estimated Weight (lbs): 7 Back/Spine/Pelvis Back: normal to inspection Skin General: no rashes or lesions noted Extrem General: normal to inspection and no pedal edema Objective Labs Result Diagrams: 03/05/21 20:45 Labs: Laboratory Results - last 24 hr 03/05/21 03/05/21 03/05/21 20:45 20:45 20:45 WBC 6.5 RBC 4.01 Hgb 11.7 L Hct 34.8 L MCV 87.0 MCH 29.2 MCHC 33.6 RDW 13.6 Plt Count 90 L Neut % (Auto) 72.7 Lymph % (Auto) 20.5 L [place] % (Auto) 5.9 Eos % (Auto) 0.9 L Baso % (Auto) 0.0 Neut # (Auto) 4700 Lymph # (Auto) 1300 [place] # (Auto) 400 Eos # (Auto) 100 Baso # (Auto) 0 SARS-CoV-2 (PCR) Negative Blood Type B Positive Antibody Screen Negative Assessment and Plan Assessment and Plan Assessment and Plan narrative: 35 year old at 39 weeks here for induction for AMA. S/p Cervidil overnight, Barr score of 7 this morning with regular contractions. GBS negative, COVID negative. Platelets are 90,000 this morning without concern for pre-eclampsia or HELLP. Platelets were low at the time of her last delivery as well without complications. Plan Light breakfast now Pitocin per protocol Repeat platelet count Anticipate
[2021-03-06 08:26] LABS: Add Manual Diff / Slide Review NO; Basophils Absolute Auto 0 /uL (0-100); Basophils Percent Auto 0.2 % (0-2); Eosinophils Absolute Auto 100 /uL (0-450); Eosinophils Percent Auto 0.8 % (2-4); Hematocrit 36.4 % (36-46); Hemoglobin 12.2 g/dL (12.0-16.0); Lymphocytes Absolute Auto 1300 /uL (1100-4500); Lymphocytes Percent Auto 14.3 % (25-40); Mean Corpuscular HGB Conc 33.6 % (30-36); Mean Corpuscular Hemoglobin 29.1 PG (26-34); Mean Corpuscular Volume 86.6 fL (80-100); Monocytes Absolute Auto 400 /uL (0-900); Monocytes Percent Auto 4.2 % (3-14); Neutrophils Absolute Auto 7500 /uL (1500-7000); Neutrophils Percent Auto 80.5 % (50-75); Platelet Count 79 X10^3/uL (150-400); White Blood Cell Count 9.2 X10^3/uL (4.5-11.0)
[2021-03-06] MEDS: LACTATED RINGERS 1,000 ML 100 ML IV ×2 (09:20→13:23)
[2021-03-06] MEDS: OXYTOCIN PREMIX 30 UNIT/500 ML PLAST..BAG IV (09:29)
--- NOTE | 2021-03-06 13:01 | PM.OBPNLAB ---
Date/Time Date Patient Seen: 03/06/21 Time Patient Seen: 12:45 Pain Control Pain control: tolerating well Comments: Rates pain 4/10, not bad. Will get an epidural eventually. Pelvic Exam Dilation (cm): 3 Effacement (%): 75 station: -2 Amniotic membrane status: Ruptured (thin meconium) Contractions Pitocin rate (mU/min): 14 Contraction frequency (min): 3 Status status: Category l Heart Rate Baseline: 140 Monitor Accelerations: Present Monitor Decelerations: Absent Monitor Variability: Moderate Assessment and Plan Plan: continuous present management Comments: AROM with thin meconium. Continue pitocin. Epidural upon request. Anticipate .
--- NOTE | 2021-03-06 14:42 | PM.OBPRVD ---
Labor & Delivery Delivery date: 03/06/21 Intrapartal Events: Precipitous Labor < 3 hours Cervical ripening method: per Cervidil protocol Induction method: per pitocin protocol Delivery augmentation: rupture of membranes Delivery monitor: external FHT Route of delivery: L&D Laceration Description: Vaginal - 1st Degree (Very short but actively bleeding) Delivery repair: vicryl Estimated blood loss (mL): 100 Anesthesia Type: Epidural Narrative: VAGINAL DELIVERY NOTE Patient is a 35-year-old at 39 weeks gestation. She was brought in for induction for advanced maternal age. YANET 03/13/21. STAGE I: Labor Patient received Cervidil overnight by Pitocin per protocol. Artificial rupture membranes occurred at 12:30 p.m. with thin meconium stained fluid. Active labor began shortly thereafter and she received an epidural. She was complete at 1:40 p.m.. heart tones were category 1 throughout stage I. STAGE II: Delivery Patient was complete at 1:40 p.m. and pushing spontaneously. She pushed over 3 contractions and went on to deliver at 1:59 p.m.. Infant was vertex and OMERO. Infant was immediately placed on mother's abdomen. Cord was clamped and cut after approximately 1 minute delay. No resuscitation of the required beyond drying and stimulating. Apgars were 9 and 9. STAGE III: Placenta/Cord Placenta delivered at 2:02 p.m. after active management and appeared intact with a three-vessel cord. There was a very small though actively bleeding first-degree vaginal laceration which was repaired with 4-0 Vicryl in the usual fashion. Hemostasis assured. Uterine fundus was firm below umbilicus after repair and hemostasis assured. EBL: 100 mL. Needle and sponge counts were correct. The vagina was inspected and no items were left in situ. Patient was doing well with Devony, her and at bedside. Baby 1: Infant gender: Female Presentation: vertex Position: Right Occiput Anterior Cord Vessel Description: 3 Vessels score (1 min): 9 score (5 min): 9 Plan for aftercare: Routine care
[2021-03-07] MEDS: ACETAMINOPHEN 325 MG TABLET 650 MG PO (02:43)
[2021-03-07 06:37] LABS: Add Manual Diff / Slide Review NO; Basophils Absolute Auto 0 /uL (0-100); Basophils Percent Auto 0.3 % (0-2); Eosinophils Absolute Auto 100 /uL (0-450); Eosinophils Percent Auto 0.7 % (2-4); Hemoglobin 11.4 g/dL (12.0-16.0); Lymphocytes Absolute Auto 1400 /uL (1100-4500); Lymphocytes Percent Auto 17.3 % (25-40); Mean Corpuscular HGB Conc 33.6 % (30-36); Mean Corpuscular Hemoglobin 29.1 PG (26-34); Mean Corpuscular Volume 86.5 fL (80-100); Monocytes Absolute Auto 400 /uL (0-900); Monocytes Percent Auto 4.7 % (3-14); Neutrophils Absolute Auto 6000 /uL (1500-7000); Platelet Count 83 X10^3/uL (150-400); Red Blood Cell Count 3.93 X10^6/uL (4.0-5.2); White Blood Cell Count 7.8 X10^3/uL (4.5-11.0)
--- NOTE | 2021-03-07 09:26 | PM.OBDS.1 ---
Discharge Providers Provider Date of admission: 03/05/21 19:07 Discharge Date: 03/07/21 Primary care physician: Katie Moraes DO Consults: 03/07/21 14:37 Consult to Warehouse Supervisor 3Rd Shift Routine Comment: Discharge provider: Katie Moraes DO Summary Hospital Course Date Patient Seen: 03/07/21 Time Patient Seen: 08:25 Diagnoses: 39 weeks of Spontaneous vaginal delivery Hospital Course: Patient is a 35-year-old now 2 who came in for induction at 39 weeks for advanced maternal age. She received Cervidil followed by Pitocin. Labor progressed rapidly after artificial rupture membranes with thin meconium. She received an epidural shortly before delivery of a vigorous female . There was a very short though bleeding first degree laceration which was repaired with good hemostasis. No complications . She was ambulating, voiding, passing flatus. Vaginal bleeding like to moderate and pain controlled with Tylenol only. was doing very well and without difficulty. On admission [place] [address]. She did not have bleeding or bruising. Platelet count went as low as 79,000 however was trending up at the time of discharge. She had gestational thrombocytopenia with her first . Findings are again consistent with gestational thrombocytopenia and expected to resolve without intervention. Advised patient to call for bleeding through more than a pad an hour, severe pain or fevers. Will plan to repeat a CBC at her 6 week visit. Peripartum Data Delivery Method: Natural Vaginal Laceration Description: Vaginal - 1st Degree complications: none 1: Gender: Female Disposition of : home Discharge Diagnosis (1) 39 weeks gestation of : Status: Acute (2) Spontaneous vaginal delivery: Status: Acute (3) Gestational thrombocytopenia: Status: Acute Status at Discharge Cognitive/behavioral status at discharge: at baseline, oriented Functional status at discharge: independent ambulation Overall status at discharge: patient is progressing back to baseline Time Spent with Patient Time attestation: Total time spent providing and/or coordinating discharge services: Time spent: Less than 30 minutes Objective Labs Result Diagrams: 03/07/21 06:08 Labs: Laboratory Results - last 24 hr 03/07/21 06:08 WBC 7.8 RBC 3.93 L Hgb 11.4 L Hct 34.0 L MCV 86.5 MCH 29.1 MCHC 33.6 RDW 14.0 Plt Count 83 L Neut % (Auto) 77.0 H Lymph % (Auto) 17.3 L [place] % (Auto) 4.7 Eos % (Auto) 0.7 L Baso % (Auto) 0.3 Neut # (Auto) 6000 Lymph # (Auto) 1400 [place] # (Auto) 400 Eos # (Auto) 100 Baso # (Auto) 0 Exam Vital Signs (past 8 hours): Temperature 98? blood pressure 91/56 heart rate 52 respirations 16 General: Awake and alert, no acute distress. HEENT: NCAT, EOMI, moist oral mucosa CV: Regular rate and rhythm, no murmurs, rubs or gallops Lungs: CTAB, no wheezes, rales, or rhonchi Abdomen: Soft, nontender; bowel tones active; uterus firm 1 cm below umbilicus Extremities: Warm, no edema Discharge Plan Discharge Plan Patient Disposition: Home Discharge orders & Medications Prescriptions: New docusate sodium [DOK] 100 mg Capsule 100 mg PO DAILY Qty: 30 RF: 0 ibuprofen 600 mg Tablet 600 mg PO Q6HR PRN (Reason: Pain, Mild (1-3)) Qty: 30 RF: 0 Continued prenat.vits,esequiel,czu-oing-nescp tablet 1 tab PO DAILY RF: 0 Discontinued acyclovir 400 mg tablet 400 mg PO TID Qty: 90 RF: 0 (DME) Blood Glucose Test Strip See Rx Instructions .ROUTE .MEDSUPPLY Qty: 100 RF: 5 (DME) lancets Misc See Rx Instructions .ROUTE .MEDSUPPLY Qty: 100 RF: 5 (DME) blood-glucose meter Misc See Rx Instructions .ROUTE .MEDSUPPLY Qty: 1 RF: 1 Follow up/Referrals: Katie Moraes DO [Primary Care Provider] - 04/17/21 9:30 am Diet/Activity/Treatments Diet: Diet as Tolerated Skin/Wound/Dressing Care Report to your healthcare provider any signs of infection, such as:: chills, fever, night sweats, increased pain, unusual drainage and unusual redness Visit Report/Discharge Packet Visit Report Forms: Patient Portal/API, Stroke Signs & Symptoms Discharge Data Primary Care Provider: Katie Moraes
[2021-03-07 11:15] VITALS: BP 91/56; PULSE 65; RESP 16; TEMP 36.9
== END 2021-03-07 13:17 | disposition home or self-care (01) | DRG 560 ==
PROVIDERS: Admitting Provider Family Medicine; PCP Family Medicine; Referring Provider Family Medicine; Visit Provider Family Medicine
DX: O62.3 Precipitate labor (principal); Z3A.39 39 weeks gestation of pregnancy; Z37.0 Single live birth; O70.0 First degree perineal laceration during delivery; O77.0 Labor and delivery complicated by meconium in amniotic fluid; O99.12 Other diseases of the blood and blood-forming organs and certain disorders involving the immune mechanism complicating childbirth; D69.6 Thrombocytopenia, unspecified; Z20.822 Contact with and (suspected) exposure to COVID-19
CPT/HCPCS: 01967; 36415; 59050; 59200; 59400; 59409; 85025; 86850; 86900; 86901; 87635; C9803; G0379; J2590

== ENCOUNTER → 2021-04-17 09:59 | Outpatient (CLI) | payer BC, OTHER, MEDICAID, SELFPAY ==
[2021-04-17 10:34] LABS: Add Manual Diff / Slide Review NO; Basophils Absolute Auto 0 /uL (0-100); Basophils Percent Auto 0.3 % (0-2); Eosinophils Absolute Auto 100 /uL (0-450); Hematocrit 40.2 % (36-46); Hemoglobin 13.2 g/dL (12.0-16.0); Lymphocytes Absolute Auto 1300 /uL (1100-4500); Lymphocytes Percent Auto 33.3 % (25-40); Mean Corpuscular HGB Conc 32.8 % (30-36); Mean Corpuscular Hemoglobin 28.4 PG (26-34); Mean Corpuscular Volume 86.6 fL (80-100); Monocytes Absolute Auto 200 /uL (0-900); Monocytes Percent Auto 5.2 % (3-14); Neutrophils Absolute Auto 2300 /uL (1500-7000); Neutrophils Percent Auto 59.2 % (50-75); Platelet Count 115 X10^3/uL (150-400); Red Blood Cell Count 4.64 X10^6/uL (4.0-5.2); Red Cell Distribution Width 14.3 % (11.6-14.8); White Blood Cell Count 3.9 X10^3/uL (4.5-11.0)
== END ==
PROVIDERS: PCP Family Medicine; Referring Provider Family Medicine; Visit Provider Family Medicine
DX: D69.6 Thrombocytopenia, unspecified (principal)
CPT/HCPCS: 36415; 85025

== ENCOUNTER → 2022-07-28 09:53 | Outpatient (CLI) | payer BC, OTHER, SELFPAY ==
[2022-07-28 11:03] LABS: HCG Quantitative /Beta subunit 11364 mIU/mL
== END ==
PROVIDERS: Obstetrics & Gynecology; PCP Family Medicine; Referring Provider Family Medicine; Visit Provider Family Medicine
DX: N91.2 Amenorrhea, unspecified (principal)
CPT/HCPCS: 36415; 84702

== ENCOUNTER → 2022-08-09 16:31 | Outpatient (CLI) | payer OTHER, MEDICAID, SELFPAY ==
--- NOTE | 2022-08-09 16:34 | DI.US.S_ITS ---
PROCEDURE: US OB <= 14 WEEKS FETUS INDICATIONS: DATING OUTSIDE/PRIOR DATING DATA: Last menstrual period (LMP): 06/09/2022. LMP-based estimated date of delivery (YANET): 03/16/2023. First dating scan (date and location): 08/09/2022. Estimated date of delivery (YANET) from first dating scan: 03/27/2023. The calculations are made using the working YANET of 03/27/2023. TECHNIQUE: Real-time scanning was performed of the fetus and maternal pelvic organs, with image documentation. Endovaginal scanning was also performed to better visualize the fetus and maternal ovaries. COMPARISON: [facility], OB <= 14 WEEKS FETUS, 08/07/2020, 8:04. FINDINGS: Embryo: [place]-rump length 1.1 cm corresponds with a 7 week 1 day gestation Heart rate: 175 beats per minute EGA by LMP: 8 week 5 day Perigestational bleed measures 5.4 x 2.8 x 0.7 cm Maternal organs: Ovaries unremarkable. IMPRESSION: Single live intrauterine corresponds with a 7 week 1 day gestation. Perigestational bleed, 5.4 x 0.7 cm Approved by: Carter Ludwig M.D. on 08/10/2022 at 13:37
== END ==
PROVIDERS: PCP Family Medicine; Referring Provider Family Medicine; Visit Provider Family Medicine
DX: Z34.81 Encounter for supervision of other normal pregnancy, first trimester (principal); Z3A.01 Less than 8 weeks gestation of pregnancy
CPT/HCPCS: 76801; 76817

== ENCOUNTER → 2022-09-06 12:41 | Outpatient (CLI) | payer OTHER, MEDICAID, SELFPAY ==
[2022-09-06 13:26] LABS: Appearance Urine UA CLEAR; Bilirubin Urine UA NEGATIVE (NEGATIVE); Color Urine UA YELLOW; Glucose Urine UA NEGATIVE (Negative); Ketones Urine UA NEGATIVE (NEGATIVE); Leukocyte Esterase Urine UA NEGATIVE (NEGATIVE); Nitrite Urine UA NEGATIVE (Negative); Occult Blood Urine UA NEGATIVE (Negative); Protein Urine UA NEGATIVE (Negative); Specific Gravity Urine UA <=1.005 (1.000-1.035); Urobilinogen Urine UA 0.2 E.U./dL (0.2)
[2022-09-06 13:35] LABS: Add Manual Diff / Slide Review NO; Basophils Absolute Auto 0 /uL (0-100); Basophils Percent Auto 0.2 % (0-2); Eosinophils Absolute Auto 100 /uL (0-450); Hematocrit 38.4 % (36-46); Hemoglobin 13.2 g/dL (12.0-16.0); Lymphocytes Absolute Auto 1200 /uL (1100-4500); Lymphocytes Percent Auto 14.4 % (25-40); Mean Corpuscular HGB Conc 34.3 % (30-36); Mean Corpuscular Hemoglobin 29.5 PG (26-34); Mean Corpuscular Volume 86.1 fL (80-100); Monocytes Absolute Auto 300 /uL (0-900); Neutrophils Absolute Auto 6600 /uL (1500-7000); Neutrophils Percent Auto 80.4 % (50-75); Platelet Count 157 X10^3/uL (150-400); Red Blood Cell Count 4.46 X10^6/uL (4.0-5.2); Red Cell Distribution Width 13.7 % (11.6-14.8); White Blood Cell Count 8.3 X10^3/uL (4.5-11.0)
[2022-09-06 13:51] LABS: pH Urine UA 5.5 (4.5-8.0)
[2022-09-06 13:56] LABS: Hemoglobin A1C% w Est Avg Glu 4.9 % (4.0-6.0)
[2022-09-06 14:08] LABS: HEMOLYSIS < 15 (0-50); Iron 98 ug/dL (37-170)
[2022-09-06 14:10] LABS: Alanine Aminotransferase 13 IU/L (<35); Albumin 4.2 g/dL (3.5-5.0); Albumin Globulin Ratio 1.2 (1.0-2.8); Alkaline Phosphatase 49 U/L (38-126); Aspartate Aminotransferase 22 IU/L (14-36); BUN Creatinine Ratio 32.5 (6-22); Bilirubin Total 0.4 mg/dL (0.2-1.3); Blood Urea Nitrogen 13 mg/dL (7-17); Calcium 9.2 mg/dL (8.4-10.2); Carbon Dioxide 20 mmol/L (22-32); Chloride 106 mmol/L (98-107); Estimated Glomerular Filt Rate > 60 mL/min (>60); Globulin 3.4 g/dL (1.7-4.1); Glucose 82 mg/dL (70-100); HEMOLYSIS < 15 (0-50); Potassium 3.8 mmol/L (3.4-5.1); Sodium 136 mmol/L (137-145); Total Protein 7.6 g/dL (6.3-8.2)
[2022-09-06 14:17] LABS: Percent Iron Saturation 19 % (15-50); Total Iron Binding Capacity 507 ug/dL (265-497); Transferrin 374 mg/dL (206-381)
[2022-09-06 15:15] LABS: Folate 16.9 ng/mL (2.76-20.0); Vitamin B12 528 pg/mL (239-931)
[2022-09-06 16:09] LABS: Vitamin D 25 Hydroxy (D3) 25.2 ng/mL (30.0-100.0)
[2022-09-06 16:30] LABS: Hepatitis B Surface Antigen NEGATIVE s/c (NEGATIVE); Rubella Antibody IgG 5.8 IU/mL (>15)
[2022-09-06 16:38] LABS: HIV 1 & 2 Ab/Ag 4th Gen Combo NEGATIVE (NEGATIVE); Hep C Virus Ab w/Reflex Quant NEGATIVE s/c (NEGATIVE)
[2022-09-07 09:13] LABS: Varicella IgG Antibody 837 index (Immune >165)
[2022-09-08 02:42] LABS: RPR Screen Non Reactive (Non Reactive)
[2022-09-14 16:08] LABS: Vitamin B1 211.1 nmol/L (66.5-200.0)
== END ==
PROVIDERS: PCP Family Medicine; Referring Provider Family Medicine; Visit Provider Family Medicine
DX: O09.521 Supervision of elderly multigravida, first trimester (principal); Z31.5 Encounter for procreative genetic counseling; K76.0 Fatty (change of) liver, not elsewhere classified; Z98.84 Bariatric surgery status; Z87.898 Personal history of other specified conditions
CPT/HCPCS: 36415; 80053; 80055; 81003; 82306; 82607; 82746; 83036; 83540; 83550; 84425; 86787; 86803; 86850; 86900; 86901; 87086; 87389

== ENCOUNTER → 2022-11-11 16:08 | Outpatient (CLI) | payer OTHER, MEDICAID, SELFPAY ==
--- NOTE | 2022-11-11 16:09 | DI.US.S_ITS ---
PROCEDURE: US OB >= 14 WEEKS FETUS INDICATIONS: 20 WEEK ANATOMY OUTSIDE/PRIOR DATING DATA: Last menstrual period (LMP): 06/09/2022 LMP-based estimated date of delivery (YANET): 03/16/2023 First dating scan (date and location): 08/09/2022 Estimated date of delivery (YANET) from first dating scan: 03/27/2023 The calculations are made using the study generated YANET of 19 the 423. TECHNIQUE: Real-time scanning was performed of the fetus, with image documentation and biometric measurements. Endovaginal scanning: Not indicated COMPARISON: [facility], OB >= 14 WEEKS FETUS, 10/22/2020, 13:25. FINDINGS: General: A single living intrauterine gestation is present. Presentation: Breech Placenta: Placental position is posterior, without previa. Amniotic fluid index: 13.9 cm, normal range is 5-24 cm. Single deepest vertical pocket is 3.9 cm. heart rate: 152 beats per minute. Maternal cervical canal: Not well seen. biometrics: Biparietal diameter: 4.9 cm, 20 weeks, 6 days. Head circumference: 18.6 cm, 21 weeks, 0 day. Abdominal circumference: 15.5 cm, 20 weeks, 5 days. Femur length: 3.4 cm, 20 weeks, 5 days. Clinically estimated gestational age: 20 weeks, 4 days. Composite gestational age from present scan: 20 weeks, 6 days. Estimated weight and percentile: 375 g, 55%. Anatomic survey: Neuro: Ventricles are non-dilated at less than 10 mm. Cisterna magna is normal at 3-11 mm. Cerebellum is normal in size and morphology. Nuchal skin fold: Normal at less than 6 mm between 14-21 weeks gestational age. Face: Facial profile is not well seen due to position. Spine: No evidence for spina bifida. Heart: 4-chambered heart is present. Outflow tracts are not well seen due to position. Diaphragm: Diaphragm is intact. Stomach: Left-sided stomach is present. Kidneys: No hydronephrosis. Normal is less than 5 mm in 2nd trimester, less than 7 mm in 3rd trimester. Cord: 3-vessel cord has orthotopic insertion. Bladder: Normal in size. Extremities: All 4 extremities identified. IMPRESSION: 1. Single live intrauterine gestation with fetus in breech presentation. heart rate is 152 beats per minute. Normal amount of amniotic fluid. Normal growth. Estimated weight is at 55%. 2. facial profile and outflow tracts are not well seen due to position. Rest of the anatomic survey is normal. We strive to produce accurate, complete, and clear reports of imaging services. To assist us in improving patient care, this report was composed using standard report templates and voice recognition software. Therefore, it may contain abnormal punctuation, insertions and/or omissions. Occasional wrong-word or sound-alike substitutions may occur. Though we review the report and make efforts to correct it, we do recommend that the report be read carefully in proper context to recognize any text inaccuracies. Dictated by: Hao Dooley M.D. on 11/12/2022 at 8:11 Approved by: Hao Dooley M.D. on 11/12/2022 at 8:13
== END ==
PROVIDERS: PCP Family Medicine; Referring Provider Family Medicine; Visit Provider Family Medicine
DX: Z34.92 Encounter for supervision of normal pregnancy, unspecified, second trimester (principal); Z3A.20 20 weeks gestation of pregnancy
CPT/HCPCS: 76811

== ENCOUNTER → 2022-12-06 13:15 | Outpatient (CLI) | payer OTHER, MEDICAID, SELFPAY ==
--- NOTE | 2022-12-06 13:15 | DI.US.S_ITS ---
PROCEDURE: US OB FOLLOW UP INDICATIONS: unable to view structures OUTSIDE/PRIOR DATING DATA: Last menstrual period (LMP): 06/09/2022 LMP-based estimated date of delivery (YANET): 03/16/2023 First dating scan (date and location): 08/09/2022 Estimated date of delivery (YANET) from first dating scan: 03/27/2023 The calculations are made using the ultrasound YANET of 03/27/2023 TECHNIQUE: Real-time scanning was performed of the fetus, with image documentation. Endovaginal scanning: Not performed. COMPARISON: [facility], , US OB >= 14 WEEKS FETUS, 11/11/2022, 16:18. FINDINGS: A single living intrauterine gestation is present. Presentation: Variable Placenta: Placental position is posterior without previa. Amniotic fluid index: 17.3 cm, normal range is 5-24 cm. Single deepest vertical pocket is 4.5 cm. heart rate: 153 beats per minute. Maternal cervical canal: 4.6 cm long. Normal lower limit is 2.5 cm. Estimated gestational age from initial scan: 24 weeks 1 day facial profile and right and left ventricular outflow tracks are within normal limits. IMPRESSION: 1. Single live intrauterine . 2. Normal facial profile and ventricular outflow tracts. Approved by: Sid Crocker M.D. on 12/06/2022 at 16:07
== END ==
PROVIDERS: PCP Family Medicine; Referring Provider Family Medicine; Visit Provider Family Medicine
DX: Z36.2 Encounter for other antenatal screening follow-up (principal); Z3A.24 24 weeks gestation of pregnancy
CPT/HCPCS: 76816

== ENCOUNTER → 2022-12-10 11:23 | Outpatient (CLI) | payer OTHER, MEDICAID, SELFPAY ==
[2022-12-13 13:53] LABS: C difficie Toxins A and B, EIA Negative (Negative)
== END ==
PROVIDERS: PCP Family Medicine; Referring Provider Family Medicine; Visit Provider Family Medicine
DX: R19.7 Diarrhea, unspecified (principal)
CPT/HCPCS: 87045; 87177; 87324; 87899

== ENCOUNTER → 2023-01-15 09:52 | Outpatient (CLI) | payer OTHER, MEDICAID, SELFPAY ==
[2023-01-15 11:09] LABS: Add Manual Diff / Slide Review NO; Basophils Absolute Auto 0 /uL (0-100); Basophils Percent Auto 0.1 % (0-2); Eosinophils Absolute Auto 0 /uL (0-450); Eosinophils Percent Auto 0.8 % (2-4); Hematocrit 34.7 % (36-46); Hemoglobin 11.9 g/dL (12.0-16.0); Lymphocytes Absolute Auto 800 /uL (1100-4500); Mean Corpuscular HGB Conc 34.4 % (30-36); Mean Corpuscular Hemoglobin 30.8 PG (26-34); Mean Corpuscular Volume 89.4 fL (80-100); Monocytes Absolute Auto 300 /uL (0-900); Monocytes Percent Auto 5.1 % (3-14); Neutrophils Absolute Auto 4100 /uL (1500-7000); Platelet Count 112 X10^3/uL (150-400); Red Blood Cell Count 3.88 X10^6/uL (4.0-5.2); Red Cell Distribution Width 12.9 % (11.6-14.8); White Blood Cell Count 5.2 X10^3/uL (4.5-11.0)
[2023-01-15 11:20] LABS: GTT (PREG) 1 Hour PP 50gm Dose 108 mg/dL (76-139)
== END ==
PROVIDERS: PCP Family Medicine; Referring Provider Family Medicine; Visit Provider Family Medicine
DX: Z34.82 Encounter for supervision of other normal pregnancy, second trimester (principal); R19.7 Diarrhea, unspecified; Z3A.26 26 weeks gestation of pregnancy
CPT/HCPCS: 36415; 82950; 85025

== ENCOUNTER → 2023-03-04 11:14 | Outpatient (CLI) | payer OTHER, MEDICAID, SELFPAY ==
[2023-03-05 07:43] LABS: Strep Grp B PCR NEG for Grp B Strep
== END ==
PROVIDERS: PCP Family Medicine; Visit Provider Family Medicine
DX: Z34.81 Encounter for supervision of other normal pregnancy, first trimester (principal); Z3A.36 36 weeks gestation of pregnancy
CPT/HCPCS: 87653

== ENCOUNTER 2023-03-22 21:02 | Inpatient (IN) | payer OTHER, MEDICAID, SELFPAY ==
[2023-03-22 21:52] LABS: Add Manual Diff / Slide Review NO; Basophils Absolute Auto 0 /uL (0-100); Basophils Percent Auto 0.4 % (0-2); Eosinophils Absolute Auto 200 /uL (0-450); Eosinophils Percent Auto 2.1 % (2-4); Hematocrit 34.4 % (36-46); Lymphocytes Absolute Auto 1300 /uL (1100-4500); Lymphocytes Percent Auto 17.4 % (25-40); Mean Corpuscular HGB Conc 34.9 % (30-36); Mean Corpuscular Hemoglobin 30.6 PG (26-34); Mean Corpuscular Volume 87.7 fL (80-100); Monocytes Absolute Auto 400 /uL (0-900); Monocytes Percent Auto 4.9 % (3-14); Neutrophils Absolute Auto 5600 /uL (1500-7000); Neutrophils Percent Auto 75.2 % (50-75); Platelet Count 120 X10^3/uL (150-400); Red Blood Cell Count 3.92 X10^6/uL (4.0-5.2); Red Cell Distribution Width 13.7 % (11.6-14.8); White Blood Cell Count 7.4 X10^3/uL (4.5-11.0)
--- NOTE | 2023-03-22 22:27 | P.HPOB_ITS ---
OB HPI Date/Time Date of admission: 03/22/23 Date Patient Seen: 03/22/23 Time Patient Seen: 22:28 History of Present Condition Chief complaint: observation of labor YANET Calculator Estimated Delivery Date Method Current WG Current Estimate 03/27/23 Manual 39w 2d Final YANET - MATEUSZ Other Estimates 03/16/23 LMP (Certain) 40w 6d 03/27/23 Ultrasound #1 39w 2d Estimated Gestational Age (weeks): 39w2d : 3 Para: 2 Narrative: 37yo at 39w2d here with regular painful contractions. Contractions started a few hours ago, getting more intense and frequent. No LOF. Vaginal bleeding this morning only with loss of her mucus plug. She is feeling her baby move regularly. The pts was complicated by AMA with negative cfDNA. FOB has hx of genital HSV, and the pt has been on prophylaxis since 36wks. care: good care, initiated at week # (11) and pounds weight gain (13) Dating criteria OB: based on 1st trimester US only Ultrasounds: normal 1st trimester US and normal mid trimester US Obstetrical complications: none Medical complications OB: none Preadmission Labs Last OB Lab Results: Blood Type B Positive 03/22/23 21:40 Antibody Screen Negative 03/22/23 21:40 Hematocrit 34.4 % (36-46) L 03/22/23 21:40 Hemoglobin 12.0 g/dL (12.0-16.0) 03/22/23 21:40 Hepatitis B Surface Antigen Negative s/c (NEGATIVE) 09/06/22 12 :58 Hepatitis C Antibody Negative s/c (NEGATIVE) 09/06/22 12:58 Rubella Antibody 5.8 IU/mL (>15) L 09/06/22 12:58 Varicella-Zoster IgG Antibody 837 index (Immune >165) 09/06/22 12:58 Glucose 1 Hour 108 mg/dL (76-139) 01/15/23 11:04 Group B Streptococcus (PCR) Neg for grp b strep 03/04/23 11:14 -: Urine: positive (Lactobacillus) Genetic Screens: Cell-free DNA: Normal External Labs -: Urine: positive (Lactobacillus) Prior (ies) Past Pregnancies Del. Date GA/Weeks Labor Lgth Wt Sex Route Outcome Anesthesia Place Delv Breastfeed Preg Comp Name 08/24/19 39 12 6 lb 6.9 oz Female vaginal live - full t erm epidural [facility] Ale[facility] 11 months none [place] 03/06/21 39 2 6 lb 14.76 oz Female vaginal live - full term epidural [facility] 14 months none Jovany Delivery Date: 08/24/19 Last Updated by: Rosa Perez R.N. *Induction due to fear of IUGR. *No issues PP. Evaluation Evaluation Baseline heart rate: 120 Variability: Moderate (11-25) monitor accelerations: Present Monitor Decelerations: Absent Status: Category l Dilation (cm): 7 Effacement (%): 100 station: -1 [facility] Medical History (Updated 08/03/22 @ 16:18 by Kira More, RN) 39 weeks gestation of Abnormal Pap smear of cervix (~2010) AMA (advanced maternal age) multigravida 35+ Fatty liver (~2013) Gestational thrombocytopenia History of prediabetes (~2016) Infertility PCOS (polycystic ovarian syndrome) Spontaneous vaginal delivery (spontaneous vaginal delivery) (~08/24/19) Surgical History S/P appendectomy (~2012) S/P bariatric surgery (~12/2017) [place] teeth extracted Family History (Updated 08/03/22 @ 15:40 by Kira More, BIRD) Father Diabetes mellitus Hypertension Mother Hyperlipidemia Cancer Grandmother No problems noted. Grandfather No problems noted. Grandmother CVA (cerebral vascular accident) Grandfather CVA (cerebral vascular accident) Family/Other Asthma COVID-19 Family/Other Alzheimer's dementia Social History marital status: number of children: 1 household members: spouse, family (Her parents live with them) and children lives independently: Yes caregiver/support person: Yes housing: house pets and animals: Yes (1 small dog) education level: college (Associate's degree) occupational status: previously employed current occupational exposures/hazards: No jessica/denominational: Confucianism special jessica needs: No travel history: over 6 months ago seatbelt use: always water heater temp set < 120 deg: Yes working smoke detector in home: Yes fire extinguisher in home: Yes carbon monox detector in home: Yes firearms in home: Yes firearms unloaded and locked: Yes do you feel safe at home: Yes Smoking Status: Never smoker second hand exposure: No alcohol intake: former (Occasionally when not ) substance use type: does not use during the past year weight has: increased > 10 lbs well-balanced diet: about half the time daily servings fruits/ve-4 caffeine: Yes (occasional coffee ) Type(s) of exercise: none Meds Home Medications and Allergies Home Medications Medication Instructions Recorded Confirmed Type prenat.vits,esequiel,fqx-nxgo-aohct 1 tab PO DAILY #90 tabs 07/29/22 03/18/23 Rx valacyclovir 500 mg tablet 500 mg PO BID #60 tabs 03/04/23 03/18/23 Rx Allergies Allergy/AdvReac Type Severity Reaction Status Date / Time No Known Drug Allergies Allergy Verified 03/18/23 10:32 OB Exam Narrative Exam Narrative: Gen: NAD, sitting comfortably in bed, appears well CV: RRR, no murmurs Resp: clear to auscultation bilaterally Abd: soft, nontender, gravid Ext: no edema Objective Labs 03/22/23 21:40 Labs: Laboratory Results - last 24 hr 03/22/23 21:40 WBC 7.4 RBC 3.92 L Hgb 12.0 Hct 34.4 L MCV 87.7 MCH 30.6 MCHC 34.9 RDW 13.7 Plt Count 120 L Neut % (Auto) 75.2 H Lymph % (Auto) 17.4 L [place] % (Auto) 4.9 Eos % (Auto) 2.1 Baso % (Auto) 0.4 Neut # (Auto) 5600 Lymph # (Auto) 1300 [place] # (Auto) 400 Eos # (Auto) 200 Baso # (Auto) 0 Assessment and Plan Assessment and Plan Assessment and Plan narrative: 37yo at 39w2d here with regular painful contractions, in active labor. GBS negative, Rh positive. After informed consent, AROM performed with production of clear fluid. - Expectant management, anticipate - FHT reassuring - GBS negative, no prophylaxis indicated - Epidural in place for pain control
--- NOTE | 2023-03-22 22:30 | PM.ANES.PR ---
Operative Date/Time/Diagnoses Date of procedure: 03/22/23 Time of procedure: 22:02 Pre-op diagnosis: labor pain Post-op diagnosis: same Note patient is requesting labor epidural
--- NOTE | 2023-03-22 22:31 | PM.AN.REGBLK ---
Regional Block Pre-procedure Procedure: Continuous Lumbar Epidural for L&D Attending OB provider: Angela Hammond PMH/ROS narrative: Patient is a requesting labor epidural for labor pain Hx: No personal or family history of anesthesia problems. Exam narrative: Mallampati: 2, good neck ROM, T.M. > 3cm ASA Class: II Labs: Hct 34.4 % (36-46) L 03/22/23 21:40 Plt Count 120 X10^3/uL (150-400) L 03/22/23 21:40 Medications: Current Medications Generic Name Dose Route Start Last Admin Trade Name Freq PRN Reason Stop Dose Admin Calcium Carbonate 1,000 mg 03/22/23 21:10 Calcium Carbonate 500 Mg Tab PO Q4HR PRN Dyspepsia Carboprost Tromethamine 250 mcg 03/22/23 21:10 Carboprost 250 Mcg/Ml Ampul IM Q90M PRN Bleeding Diphenhydramine HCl 25 mg 03/22/23 22:29 Diphenhydramine 50 Mg/Ml Vial IV Q10M PRN Pruritis Fentanyl 50 mcg 03/22/23 21:10 Fentanyl 100 Mcg/2 Ml Inj IV Q1H PRN Pain, Moderate (4-6) Lactated Ringer's 1,000 mls @ 100 mls/hr 03/22/23 21:15 Lactated Ringers IV CONT JONO Oxytocin/Lactated Ringer's 30 unit in 500 mls @ 200 mls/hr 03/22/23 21:10 Oxytocin Premix IV CONT PRN Bleeding Protocol Tranexamic Acid 1,000 mg/ 100 mls @ 200 mls/hr 03/22/23 21:10 Sodium Chloride IV NOW PRN Bleeding Oxytocin/Lactated Ringer's 30 unit in 500 mls @ 2 mls/hr 03/22/23 21:15 Oxytocin Premix IV TITRATE JONO Protocol 2 MILLIUNIT/MIN FENT 2MCG/ML BUPIV 0.1% EPI 200 mcg in 100 mls @ 6 mls/hr 03/22/23 22:30 Fentanyl/Bupiv/Ns 2mcg/Ml - 0.1% EPIDURAL CONT JONO Lidocaine HCl 20 ml 03/22/23 21:10 Lidocaine 1% 20 Ml INJ INTRA-OP PRN Post Delivery Methylergonovine Maleate 0.2 mg 03/22/23 21:10 Methylergonovine 0.2 Mg/Ml Vial IM NOW PRN Bleeding Methylergonovine Maleate 0.2 mg 03/22/23 21:10 Methylergonovine 0.2 Mg Tablet PO Q6HR PRN Heavy Bleeding Misoprostol 400 mcg 03/22/23 21:10 Misoprostol 200 Mcg Tablet SL NOW PRN Bleeding Misoprostol 800 mcg 03/22/23 21:10 Misoprostol 200 Mcg Tablet VA NOW PRN Bleeding Nalbuphine HCl 2.5 mg 03/22/23 22:29 Nalbuphine 20 Mg/Ml Ampul IV Q10M PRN Pruritis Naloxone HCl 0.2 mg 03/22/23 21:10 Naloxone 0.4 Mg/Ml Vial IV Q2MIN PRN Opiate Reversal Ondansetron HCl 4 mg 03/22/23 21:10 Ondansetron 4 Mg/2 Ml Inj IV Q4HR PRN Nausea And Vomiting Oxytocin 10 unit 03/22/23 21:10 Oxytocin 10 Unit/Ml Vial IM NOW PRN Bleeding Allergies: Allergies Allergy/AdvReac Type Severity Reaction Status Date / Time No Known Drug Allergies Allergy Verified 03/18/23 10:32 Procedure Insertion date: 03/22/23 Insertion time: 22:02 Prep/Local: 1% lidocaine (prep with Chloroprep) Interspace: L4-5 Patient position: sitting Needle: 18 gauge Diana Loss of resistance with: saline BLANE at (cm): 7 Catheter placed at SKIN (cm): 12 Catheter in SPACE (cm): 5 Sensory level: T 10 Insertion: No CSF, No Blood, No Paresthesia with injection and No Test dose reaction Initial Medications TEST DOSE time: 22:05 TEST DOSE: 1.5% lidocaine with epinephrine 1:200k (mL): 5 BOLUS DOSE time: 22:13 BOLUS DOSE (mL): 5 BOLUS DOSE med: other (2% Lidocaine) Infusion INFUSION: 0.125% bupivacaine and with fentanyl 2 mcg/mL Post-procedure Anesthesia time START: 22:02 Anesthesia time END: 23:17 Post-procedure Anesthesia Assessment: Yes CV function: HR/BP stable, Yes Resp function: RR/sat/airway adequate, Yes Post-op hydration adequate, Yes Pain control adequate, Yes Nausea & vomiting absent, Yes Temperature > 36 C and Yes Mental status appropriate
--- NOTE | 2023-03-22 23:31 | PM.OBPRVD ---
Labor & Delivery Delivery date: 03/22/23 Cervical ripening method: none Induction method: none Delivery augmentation: rupture of membranes Delivery monitor: external FHT and external uterine Route of delivery: Episiotomy description: None L&D Laceration Description: None Quantitative Blood Loss: 10 Anesthesia Type: Epidural Complications: None Narrative: PROCEDURE: at 39w2d presented in active labor and was admitted to Labor and Delivery. The patient progressed through the 1st stage over 9.5 hours. AROM was performed at 22:23 with clear fluid. Pain was controlled with an epidural. The patient progressed through the 2nd stage over 27 minutes and delivered a viable male infant with APGARs 9/9 at 23:17 via without complications. The cord was cut and clamped after it stopped pulsating. The placenta delivered with gentle cord traction, and appeared complete. The perineum and vagina were inspected with no lacerations. Needle and sponge counts were correct.? The vagina was inspected and no items were left in situ. Shira was doing well with her and her at bedside. PREPROCEDURE DIAGNOSIS: Intrauterine at 39w2d AMA GBS negative RH positive POSTPROCEDURE DIAGNOSIS: Intrauterine at 39w2d, delivered Same as preprocedure Baby 1: gender: Male Presentation: vertex Position: Right Occiput Anterior Placenta delivery description: Spontaneous Cord Vessel Description: 3 Vessels score (1 min): 9 score (5 min): 9 weight: 7 lb 5.462 oz Plan for aftercare: Routine care
[2023-03-23 00:46] VITALS: BP 105/56
[2023-03-23] MEDS: ACETAMINOPHEN 325 MG TABLET 650 MG PO ×2 (06:03→13:00)
[2023-03-23] MEDS: DOCUSATE 100 MG CAPSULE PO (08:52)
[2023-03-23] MEDS: DERMOPLAST SPRAY 20% 60 ML 1 SPRAY TOP (08:52)
[2023-03-23] MEDS: PRENATAL VIT,CALC/IRON/FOLIC 1 TABLET 1 TAB PO (08:53)
[2023-03-23] MEDS: IBUPROFEN 600 MG TABLET PO (13:01)
--- NOTE | 2023-03-23 14:22 | P.DS_ITS ---
Discharge Providers Provider Date of admission: 03/22/23 21:02 Discharge Date: 03/23/23 Primary care physician: Angela Hammond MD Consults: 03/23/23 23:30 Consult to Medical Charge Entry Specialist Routine Comment: Discharge provider: Angela Hammond MD Summary Hospital Course Date Patient Seen: 03/23/23 Diagnoses: Intrauterine at 39w2d AMA GBS negative RH positive Spontaneous vaginal delivery Hospital Course: The pt presented in active labor. AROM was performed with clear fluid present. She received an epidural for pain control. She progressed to complete and had a of a viable male . , there were no complications. At the time of discharge she was voiding, ambulating, and passing flatus without difficulty. Her lochia was decreasing appropriately. Her pain was well controlled. She was with good latch. She will f/u in 6 weeks for check. Her plans on vasectomy for contraception. Peripartum Data Infant Delivery Method: Natural Vaginal Laceration Description: None Episiotomy description: None Procedures: Spontaneous vaginal delivery complications: none 1: Gender: Male Disposition of : home Discharge Diagnosis (1) (spontaneous vaginal delivery): Status: Acute Time Spent with Patient Time attestation: Total time spent providing and/or coordinating discharge services: Objective Labs 03/22/23 21:40 Labs: Laboratory Results - last 24 hr 03/22/23 03/22/23 21:40 21:40 WBC 7.4 RBC 3.92 L Hgb 12.0 Hct 34.4 L MCV 87.7 MCH 30.6 MCHC 34.9 RDW 13.7 Plt Count 120 L Neut % (Auto) 75.2 H Lymph % (Auto) 17.4 L [place] % (Auto) 4.9 Eos % (Auto) 2.1 Baso % (Auto) 0.4 Neut # (Auto) 5600 Lymph # (Auto) 1300 [place] # (Auto) 400 Eos # (Auto) 200 Baso # (Auto) 0 Blood Type B Positive Antibody Screen Negative Exam Narrative Exam Narrative: Gen: NAD, sitting comfortably in bed, appears well CV: RRR, no murmurs Resp: clear to auscultation bilaterally Abd: soft, appropriately tender, fundus firm and below the umbilicus, nondistended Ext: no edema Discharge Plan Discharge Plan Patient Disposition: Home Discharge orders & Medications Prescriptions: New acetaminophen 325 mg Tablet 650 mg PO Q6HR PRN (Reason: Pain, Mild (1-3)) Qty: 30 0RF docusate sodium 100 mg Capsule 100 mg PO DAILY Qty: 30 0RF ibuprofen 600 mg Tablet 600 mg PO Q6HR PRN (Reason: Pain, Mild (1-3)) Qty: 30 0RF Continued prenat.vits,esequiel,wdq-loeg-pfhzs Tablet 1 tab PO DAILY Qty: 90 3RF Discontinued Adacel(Tdap Adolesn/Adult)(PF) 2 Lf-(2.5-5-3-5 mcg)-5Lf/0.5 mL suspension 0.5 ml IM ONCE Qty: 0.5 0RF valacyclovir 500 mg tablet 500 mg PO BID Qty: 60 1RF Follow up/Referrals: Angela Hammond MD [Primary Care Provider] - 6 Weeks Diet/Activity/Treatments Diet: Diet as Tolerated and Regular Skin/Wound/Dressing Care Report to your healthcare provider any signs of infection, such as:: chills, fever, increased pain and unusual drainage Visit Report/Discharge Packet Stand Alone Forms: Patient Portal/API, Stroke Signs & Symptoms Discharge Data Primary Care Provider: Angela Hammond
== END 2023-03-23 19:04 | disposition home or self-care (01) | DRG 560 ==
PROVIDERS: Admitting Provider Family Medicine; PCP Family Medicine; Referring Provider Family Medicine; Visit Provider Family Medicine
DX: O80 Encounter for full-term uncomplicated delivery (principal); Z20.2 Contact with and (suspected) exposure to infections with a predominantly sexual mode of transmission; Z3A.39 39 weeks gestation of pregnancy; Z37.0 Single live birth; Z67.20 Type B blood, Rh positive
CPT/HCPCS: 36415; 59050; 59409; 85025; 86850; 86900; 86901; G0379

== ENCOUNTER → 2025-04-26 12:50 | Outpatient (CLI) | payer BC, SELFPAY ==
[2025-04-26 13:41] LABS: Appearance Urine UA CLEAR; Bilirubin Urine UA NEGATIVE (NEGATIVE); Color Urine UA YELLOW; Glucose Urine UA NEGATIVE (Negative); Ketones Urine UA NEGATIVE (NEGATIVE); Leukocyte Esterase Urine UA NEGATIVE (NEGATIVE); Nitrite Urine UA NEGATIVE (Negative); Occult Blood Urine UA NEGATIVE (Negative); Protein Urine UA NEGATIVE (Negative); Specific Gravity Urine UA 1.015 (1.000-1.035); Urobilinogen Urine UA 0.2 E.U./dL (0.2)
[2025-04-26 13:46] LABS: pH Urine UA 6.5 (4.5-8.0)
[2025-04-26 13:50] LABS: Add Manual Diff / Slide Review NO; Hematocrit 35.0 % (36-46); Hemoglobin 11.7 g/dL (12.0-16.0); Lymphocytes Absolute Auto 1100 /uL (1100-4500); Mean Corpuscular HGB Conc 33.4 % (30-36); Mean Corpuscular Hemoglobin 28.0 PG (26-34); Mean Corpuscular Volume 83.7 fL (80-100); Platelet Count 156 X10^3/uL (150-400)
[2025-04-26 14:02] LABS: HEMOLYSIS < 15 (0-50); Iron 82 ug/dL (37-170)
[2025-04-26 14:05] LABS: Alanine Aminotransferase 15 IU/L (<35); Albumin 4.4 g/dL (3.5-5.0); Albumin Globulin Ratio 1.5 (1.0-2.8); Alkaline Phosphatase 54 U/L (38-126); Blood Urea Nitrogen 11 mg/dL (7-17); Calcium 9.5 mg/dL (8.4-10.2); Carbon Dioxide 23 mmol/L (22-32); Chloride 103 mmol/L (98-107); Estimated Glomerular Filt Rate > 60 mL/min (>60); Globulin 2.9 g/dL (1.7-4.1); Glucose 80 mg/dL (70-99); HEMOLYSIS < 15 (0-50); Potassium 4.2 mmol/L (3.4-5.1); Sodium 136 mmol/L (137-145); Total Protein 7.3 g/dL (6.3-8.2)
[2025-04-26 14:11] LABS: Hemoglobin A1C% w Est Avg Glu 4.9 % (4.0-6.0)
[2025-04-26 14:16] LABS: Percent Iron Saturation 18 % (15-50); Total Iron Binding Capacity 468 ug/dL (265-497); Transferrin 408 mg/dL (206-381)
[2025-04-26 14:41] LABS: Ferritin 10 ng/mL (6-137)
[2025-04-26 15:06] LABS: Urine N gonorrhoeae NOT DETECTED
[2025-04-26 15:11] LABS: Urine Chlamydia NOT DETECTED
[2025-04-27 15:40] LABS: Hepatitis B Surface Antigen NEGATIVE s/c (NEGATIVE)
[2025-04-27 15:57] LABS: HIV 1 & 2 Ab/Ag 4th Gen Combo NEGATIVE (NEGATIVE); Hep C Virus Ab w/Reflex Quant NEGATIVE s/c (NEGATIVE)
== END ==
PROVIDERS: PCP Family Medicine; Referring Provider Family Medicine; Visit Provider Family Medicine
DX: Z34.80 Encounter for supervision of other normal pregnancy, unspecified trimester (principal); Z87.898 Personal history of other specified conditions; Z98.84 Bariatric surgery status
CPT/HCPCS: 36415; 80053; 80055; 81003; 82728; 83036; 83540; 83550; 86787; 86803; 86850; 86900; 86901; 87086; 87389; 87491; 87591

== ENCOUNTER → 2025-04-30 16:04 | Outpatient (CLI) | payer BC, SELFPAY ==
--- NOTE | 2025-04-30 16:05 | DI.US.S_ITS ---
PROCEDURE: US OB <= 14 WEEKS FETUS INDICATIONS: dating/ viablity OUTSIDE/PRIOR DATING DATA: Last menstrual period (LMP): 02/17/2025. LMP-based estimated date of delivery (YANET): 11/24/2025. First dating scan (date and location): 04/30/2025. Estimated date of delivery (YANET) from first dating scan: 12/08/2025. TECHNIQUE: Real-time scanning was performed of the fetus and maternal pelvic organs, with image documentation. Endovaginal scanning was also performed to better visualize the fetus and maternal ovaries. COMPARISON: [facility], OB <= 14 WEEKS FETUS, 08/09/2022, 16:55. FINDINGS: Embryo: pole with crown-rump length measuring 1.8 cm, consistent with 8 weeks and 2 days. Heart rate: 169 BPM Perigestational bleed measuring 2.8 x 2.8 x 0.7 cm. Irregular ring-like structure adjacent to the yolk sac of uncertain etiology. Maternal organs: Ovaries are not well seen. IMPRESSION: 1. Single live intrauterine consistent with 8 weeks and 2 days. This is discordant with last menstrual period. 2. Irregular ring-like structure adjacent to the yolk sac of uncertain etiology. Recommend short-term follow-up ultrasound. We strive to produce accurate, complete, and clear reports of imaging services. To assist us in improving patient care, this report was composed using standard report templates and voice recognition software. Therefore, it may contain abnormal punctuation, insertions and/or omissions. Occasional wrong-word or sound-alike substitutions may occur. Though we review the report and make efforts to correct it, we do recommend that the report be read carefully in proper context to recognize any text inaccuracies. Dictated by: Josh Lacey M.D. on 05/01/2025 at 8:14 Approved by: Josh Lacey M.D. on 05/01/2025 at 8:16
== END ==
LOC: US 16:04
PROVIDERS: PCP Family Medicine; Referring Provider Family Medicine; Visit Provider Family Medicine
DX: Z34.81 Encounter for supervision of other normal pregnancy, first trimester (principal); Z3A.08 8 weeks gestation of pregnancy
CPT/HCPCS: 76801; 76817

== ENCOUNTER → 2025-05-22 15:48 | Outpatient (CLI) | payer BC, SELFPAY ==
--- NOTE | 2025-05-22 15:49 | DI.US.S_ITS ---
PROCEDURE: US OB <= 14 WEEKS FETUS INDICATIONS: IRREGULAR AREA ADJACENT TO YOLK SAC OUTSIDE/PRIOR DATING DATA: Last menstrual period (LMP): 02/17/2025 LMP-based estimated date of delivery (YANET): 11/24/2025 First dating scan (date and location): 04/30/2025 Estimated date of delivery (YANET) from first dating scan: 12/08/2025. TECHNIQUE: Real-time scanning was performed of the fetus and maternal pelvic organs, with image documentation. COMPARISON: [facility], OB <= 14 WEEKS FETUS, 04/30/2025, 16:15. FINDINGS: Yolk sac is seen. Cardiac motion is present mild rate 162 BPM. [place]-rump length is 5.1 cm. Ultrasound age is 11 weeks and 6 days. Prior area adjacent to yolk sac is not seen today. Perigestational hemorrhage is present, measuring 3.1 x 1.1 cm. IMPRESSION: Intrauterine gestation with cardiac motion and interval growth. Ultrasound age is 11 weeks and 6 days. Dictated by: Kendrick Turk M.D. on 05/23/2025 at 7:15 Approved by: Kendrick Turk M.D. on 05/23/2025 at 7:17
== END ==
LOC: US 15:48
PROVIDERS: PCP Family Medicine; Referring Provider Family Medicine; Visit Provider Family Medicine
DX: O20.8 Other hemorrhage in early pregnancy (principal); Z3A.11 11 weeks gestation of pregnancy
CPT/HCPCS: 76801; 76817